=== PATIENT | female | born 1990 | race Two or more races ===

== ENCOUNTER 2017-01-09 10:03 | Emergency (ER) | payer BC, MEDICAID ==
[2017-01-09 10:07] VITALS: BP 116/65
--- NOTE | 2017-01-09 10:40 | ER Document Report ---
ED General - General Chief Complaint: Sore Throat Stated Complaint: THROAT PAIN, FEVER Mode of Arrival: Ambulatory Information source: Patient Notes: 26-year-old female who 25 weeks presents with complaints of a sore throat fever of 2 day duration. 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 Admits to nausea and vomiting. Denies any abdominal or vaginal complaints TRAVEL OUTSIDE OF THE [place] IN LAST 30 DAYS: No - HPI Onset: Other - 2 day duration Onset/Duration: Sudden Quality of pain: Achy Severity: Mild Pain Level: 1 Associated symptoms: Nausea, Vomiting, Sore throat Exacerbated by: Denies Relieved by: Denies Similar symptoms previously: No Recently seen / treated by doctor: No Notes: Exposed to strep - Related Data Allergies/Adverse Reactions: No Known Allergies Allergy (Verified 01/09/17 10:05) Past Medical History - Social History Smoking Status: Never Smoker Cigarette use (# per day): No Chew tobacco use (# tins/day): No Smoking Education Provided: No Family History: Reviewed & Not Pertinent Patient has suicidal ideation: No Patient has homicidal ideation: No Renal/ Medical History: Denies: Hx Peritoneal Dialysis Past Surgical History: Reports: Hx Section - Immunizations Hx Diphtheria, Pertussis, Tetanus Vaccination: Yes Review of Systems - Review of Systems Notes: REVIEW OF SYSTEMS: CONSTITUTIONAL : Admits fever EENT: Admits to sore throat CARDIOVASCULAR: Denies chest pain. Denies palpitations or racing or irregular heart beat. Denies ankle edema. RESPIRATORY: Denies cough, cold, or chest congestion. Denies shortness of breath, difficulty breathing, or wheezing. GASTROINTESTINAL: Admits nausea vomiting GENITOURINARY: Denies difficulty urinating, painful urination, burning, frequency, blood in urine, or discharge. FEMALE GENITOURINARY: Denies vaginal bleeding, heavy or abnormal periods, irregular periods. Denies vaginal discharge or odor. MUSCULOSKELETAL: Denies back or neck pain or stiffness. Denies joint pain or swelling. SKIN: Denies rash, lesions or sores. HEMATOLOGIC : Denies easy bruising or bleeding. LYMPHATIC: Denies swollen, enlarged glands. NEUROLOGICAL: Denies confusion or altered mental status. Denies passing out or loss of consciousness. Denies dizziness or lightheadedness. Denies headache. Denies weakness or paralysis or loss of use of either side. Denies problems with gait or speech. Denies sensory loss, numbness, or tingling. Denies seizures. PSYCHIATRIC: Denies anxiety or stress. Denies depression, suicidal ideation, or homicidal ideation. ALL OTHER SYSTEMS REVIEWED AND NEGATIVE. Dictation was performed using [employer] voice recognition software PHYSICAL EXAMINATION: GENERAL: Well-appearing, well-nourished and in no acute distress. HEAD: Atraumatic, normocephalic. EYES: Pupils equal round and reactive to light, extraocular movements intact, conjunctiva are normal. ENT: Nares patent, oropharynx clear without exudates. Moist mucous membranes. NECK: Normal range of motion, supple without lymphadenopathy LUNGS: Breath sounds clear to auscultation bilaterally and equal. No wheezes rales or rhonchi. HEART: Regular rate and rhythm without murmurs ABDOMEN: Gravid abdomen Female : deferred Musculoskeletal: Normal range of motion, no pitting or edema. No cyanosis. NEUROLOGICAL: Cranial nerves grossly intact. Normal speech, normal gait. Normal sensory, motor exams PSYCH: Normal mood, normal affect. SKIN: Warm, Dry, normal turgor, no rashes or lesions noted. Physical Exam - Vital signs Vitals: Temp Pulse Resp BP Pulse Ox 98.7 F 94 16 116/65 98 01/09/17 10:01/09/17 10:01/09/17 10:01/09/17 10:01/09/17 10:06 Course - Re-evaluation Re-evalutation: 01/09/17 10:40 Strep and influenza pending at this time patient looks well otherwise be given nausea control 01/09/17 11:46 Rapid strep and flu were negative After performing a Medical Screening Examination, I estimate there is LOW risk for ACUTE CORONARY SYNDROME, RESPIRATORY FAILURE, SEPSIS OR MENINGITIS, thus I consider the discharge disposition reasonable. The patient and I have discussed the diagnosis and risks, and we agree with discharging home with close follow- up. We also discussed returning to the Emergency Department immediately if new or worsening symptoms occur. We have discussed the symptoms which are most concerning (e.g., changing or worsening pain, trouble swallowing or breathing, neck stiffness, fever) that necessitate immediate return. - Vital Signs Vital signs: Temp Pulse Resp BP Pulse Ox 98.7 F 94 16 116/65 98 01/09/17 10:06 01/09/17 10:06 01/09/17 10:06 01/09/17 10:06 01/09/17 10:06 Discharge - Discharge Clinical Impression: Sore throat Nausea & vomiting Qualifiers: Vomiting type: unspecified Vomiting Intractability: non-intractable Qualified Code(s): R11.2 - Nausea with vomiting, unspecified Condition: Stable Disposition: HOME, SELF-CARE Instructions: Sore Throat ([facility]), Vomiting ([facility]) Prescriptions: Promethazine HCl [Phenergan 25 mg Tablet] 1 - 2 tab PO Q6H PRN #15 tablet PRN Reason: Forms: Return to Work Referrals: RONALD PAYNE MD [Primary Care Provider] - Follow up tomorrow
== END 2017-01-09 12:15 | disposition home or self-care (01) ==
LOC: ER 10:03
DX: J02.9 Acute pharyngitis, unspecified (principal); R11.2 Nausea with vomiting, unspecified; R07.0 Pain in throat; R50.9 Fever, unspecified
CPT/HCPCS: 87070; 87077; 87804; 87880; 99283

== ENCOUNTER 2017-01-22 00:17 | Emergency (ER) | payer BC, MEDICAID ==
[2017-01-22] MEDS ORDERED: AZITHROMYCIN 250 MG TABLET PO ONE (03:07)
[2017-01-22] MEDS ORDERED: CEFTRIAXONE INJ 250 MG VIAL IM ONE (03:07)
--- NOTE | 2017-01-22 03:12 | ER Document Report ---
ED GI/ - General Mode of Arrival: Ambulatory Information source: Patient TRAVEL OUTSIDE OF THE [place] IN LAST 30 DAYS: No - HPI Patient complains to provider of: Vaginal pain - with intercourse Associated symptoms: Other - See above - General Chief Complaint: Vaginal Pain Stated Complaint: painful intercourse Notes: Patient is a 26 year old female who presents to the emergency department complaining of painful intercourse onset 1 week ago and is afriad she may have an STD. Patient states that she is 28 weeks and with 1 miscarriage. Patient also complains of vaginal discharge with odor. Patient states that she has had chlamydia before in the beginning of this as well as BV 2 times. Patient states that her last intercourse was 5 days ago. ( [facility]) - Related Data Allergies/Adverse Reactions: No Known Allergies Allergy (Verified 01/09/17 10:05) Past Medical History - General Information source: Patient - Social History Smoking Status: Unknown if Ever Smoked Family History: Reviewed & Not Pertinent Past Surgical History: Reports: Hx Section - Immunizations Hx Diphtheria, Pertussis, Tetanus Vaccination: Yes Review of Systems - Review of Systems Constitutional: No symptoms reported EENT: No symptoms reported Cardiovascular: No symptoms reported Respiratory: No symptoms reported Gastrointestinal: No symptoms reported Genitourinary: No symptoms reported Female Genitourinary: See HPI, , Vaginal discharge, Vaginal odor, Painful intercourse Musculoskeletal: No symptoms reported Skin: No symptoms reported Hematologic/Lymphatic: No symptoms reported Neurological/Psychological: No symptoms reported -: Yes All other systems reviewed and negative Physical Exam - Vital signs Interpretation: Normal - General General appearance: Appears well, Alert - HEENT Head: Normocephalic, Atraumatic - Respiratory Respiratory status: No respiratory distress Chest status: Nontender Breath sounds: Normal Chest palpation: Normal - Cardiovascular Rhythm: Regular Heart sounds: Normal auscultation Murmur: No - Abdominal Inspection: Normal Distension: No distension Bowel sounds: Normal Tenderness: Nontender Organomegaly: No organomegaly - Genitourinary Speculum exam: Vaginal discharge - large amount of white discharge Vaginal bleeding: None Bimanuel exam: No: Cervical motion tender - Back Back: Normal, Nontender - Extremities General upper extremity: Normal inspection, Normal ROM, Normal strength General lower extremity: Normal inspection, Normal ROM, Normal strength, Normal weight bearing - Neurological Neuro grossly intact: Yes Cognition: Normal Orientation: AAOx4 Brian Coma Scale Eye Opening: Spontaneous Davison Coma Scale Verbal: Oriented Brian Coma Scale Motor: Obeys Commands Brian Coma Scale Total: 15 Speech: Normal Motor strength normal: LUE, RUE, LLE, RLE - Psychological Associated symptoms: Normal affect, Normal mood - Skin Skin Temperature: Warm Skin Moisture: Dry Skin Color: Normal Course - Re-evaluation Re-evalutation: 01/22/17 03:13 Patient presents emergency Department with a chief complaint of painful sex and vaginal discharge. She states she is 28 weeks think she has coronary again. Says she hasn't had sex in 5 days. Says it's painful denies any bleeding abdominal pain cramping nausea vomiting diarrhea or back pain. On examination well-appearing nontoxic abdomen is no acute guarding rebound rigidity cervical exam large amount of white vaginal discharge cervical os is closed no bleeding slight tenderness with Q-tip to the cervix no cervical motion tenderness or adnexal tenderness or fullness. When ahead and gave her Rocephin and Zithromax. Discussed with her importance of partner being treated if cultures come back positive she verbalizes an understanding of this no acute concerns with the in terms of cramping pain or bleeding. Follow-up with [facility] in one to 2 days and discussed reasons Fredia return sooner 01/22/17 03:25 (XAVI ZAMARRIPA) - Vital Signs Vital signs: Temp Pulse Resp BP Pulse Ox 98.4 F 66 18 114/66 100 01/22/17 04:08 01/22/17 04:08 01/22/17 04:08 01/22/17 04:08 01/22/17 04:08 - Laboratory Laboratory results interpreted by me: 01/22/17 03:05 Urine Protein 30 H Ur Leukocyte Esterase TRACE H Discharge - Discharge Clinical Impression: Vaginal discharge during Qualifiers: Trimester: second trimester Qualified Code(s): O26.892 - Other specified related conditions, second trimester Condition: Stable Disposition: HOME, SELF-CARE Additional Instructions: vaginal discharge in Your exam shows that you have vaginitis, a vaginal infection. The infection can be caused by a many different organisms, including trichomonas or Gardnerella. The usual symptoms are vaginal irritation and discharge. The treatment is usually antibiotics such as Flagyl. Laboratory tests can determine which germ is responsible. Use the medication as prescribed. Because this infection can be transmitted sexually, your sexual partner may need to be checked and treated also. If your physician has not discussed this with you, please check before resuming sexual relations. If a culture shows gonorrhea or chlamydia, the infection must be reported to the health department. Call the doctor if you develop pelvic pain, fever, or problems with urination, or if you don't improve as expected. Follow-up with your [facility] physician to 3 days return for increasing worsening or new symptoms. If you've cultures come back positive for gonorrhea or chlamydia he must have all sexual partners treated otherwise she will sure the disease back and forth. Return for increasing worsening or new symptoms Scribe Attestation: 01/23/17 21:25 i personally performed the services described in the documentation, reviewed the documentation recorded by the scribe in my presence and it accurately and completely records my words and actions. (AXVI ZAMARRIPA) Scribe Documentation - Scribe Written by Kylee:: kylee Guzmán, 01/22/17, 0313 acting as scribe for :: Toño
[2017-01-22 03:22] LABS: APPEARANCE,URINE CLOUDY; BILIRUBIN,URINE NEGATIVE (NEGATIVE); GLUCOSE, URINE NEGATIVE (NEGATIVE); KETONES,URINE NEGATIVE (NEGATIVE); LEUKOCYTE ESTERASE,URINE TRACE (NEGATIVE); NITRITE,URINE NEGATIVE (NEGATIVE); PROTEIN,URINE 30 mg/dL (NEGATIVE); URINE SPECIFIC GRAVITY 1.024; UROBILINOGEN,URINE NEGATIVE mg/dL (<2.0)
[2017-01-22] MEDS ORDERED: LIDOCAINE 1% INJ (10 MG/ML) 10 ML MDV INJ ONE (03:51)
[2017-01-22] MEDS ORDERED: LIDOCAINE 1% INJ-PF (10 MG/ML) 30 ML SDV ONE (03:57)
[2017-01-22 04:09] VITALS: BP 114/66
[2017-01-22 05:16] LABS: CHLAM PCR NOT DETECTED (NOT DETECT)
== END 2017-01-22 04:15 | disposition home or self-care (01) ==
LOC: ER 00:17
DX: O26.892 Other specified pregnancy related conditions, second trimester (principal); R10.2 Pelvic and perineal pain; Z3A.28 28 weeks gestation of pregnancy
CPT/HCPCS: 99283; 96372; 87210; 81001; 87491; 87591; J0696

== ENCOUNTER 2017-02-17 20:41 | Outpatient (CLI) | payer BC, MEDICAID ==
[2017-02-17 21:20] LABS: APPEARANCE,URINE SLIGHTLY-CLOUDY; BILIRUBIN,URINE NEGATIVE (NEGATIVE); GLUCOSE, URINE NEGATIVE (NEGATIVE); KETONES,URINE NEGATIVE (NEGATIVE); LEUKOCYTE ESTERASE,URINE NEGATIVE (NEGATIVE); NITRITE,URINE NEGATIVE (NEGATIVE); PROTEIN,URINE NEGATIVE (NEGATIVE); URINE SPECIFIC GRAVITY 1.015; UROBILINOGEN,URINE NEGATIVE mg/dL (<2.0)
[2017-02-17 21:33] LABS: URINE BARBITURATES SCREEN NEGATIVE; URINE METHADONE SCREEN NEGATIVE; URINE OPIATES LOW NEGATIVE; URINE PHENCYCLIDINE SCREEN NEGATIVE
== END 2017-02-17 22:48 | disposition home or self-care (01) ==
LOC: LC 20:41
PROVIDERS: ATTEND Student in an Organized Health Care Education/Training Program
PROC: 4A1HXCZ Monitoring of Products of Conception, Cardiac Rate, External Approach (ICD-10-PCS; principal; 2017-02-17)
DX: O47.03 False labor before 37 completed weeks of gestation, third trimester (principal); Z3A.30 30 weeks gestation of pregnancy
CPT/HCPCS: 76815; 80307; 81001

== ENCOUNTER 2017-03-09 12:55 | Outpatient (CLI) | payer BC, MEDICAID | END 2017-03-09 14:19 | disposition home or self-care (01) | LOC: LC 12:55 | PROVIDERS: ATTEND Obstetrics & Gynecology | PROC: 4A1HXCZ Monitoring of Products of Conception, Cardiac Rate, External Approach (ICD-10-PCS; principal; 2017-03-09) | DX: O36.8130 Decreased fetal movements, third trimester, not applicable or unspecified (principal); Z3A.35 35 weeks gestation of pregnancy | CPT/HCPCS: 59025 ==

== ENCOUNTER 2017-03-13 09:47 | Outpatient (CLI) | payer BC, MEDICAID ==
--- NOTE | 2017-03-13 09:49 | Non Stress Test Report ---
Non Stress Test Datetime Report Generated by CPN: 03/13/2017 09:49 DEMOGRAPHIC EGA NST: 33.5 INDICATION Indication for Study: Decreased Movement; Ordered by Provider MONITORING Monitor Explained: Monitor Explained; Test Explained; Patient Verbalized Understanding Time on Monitor: 03/09/2017 13:09 NST INTERVENTIONS NST Interventions: None Physician Notified NST: H Gordon CNM BABY A: [id number] BABY A Movement : Decreased Contraction Frequency : none FHR Baseline : 135 Accelerations : 15X15 Decelerations : None Variability : Moderate 6-25bpm NST Review: Meets Criteria for Reactive NST NST Review and Verified By : Lexis Zaidi RN NST Results: Reactive NST COMMENTS NST Comments: Audible movement heart, H Gordon CNM reviewed strip NST REPORT Report Trigger: Send Report
--- NOTE | 2017-03-13 10:24 | Non Stress Test Report ---
Non Stress Test Datetime Report Generated by CPN: 03/13/2017 10:24 DEMOGRAPHIC EGA NST: 34.2 INDICATION Indication for Study: Ordered by Provider Indication for Study (NST) Other: Repeat MONITORING Monitor Explained: Monitor Explained; Test Explained; Patient Verbalized Understanding Time on Monitor: 03/13/2017 09:50 Time off Monitor: 03/13/2017 10:22 NST Duration: 32 NST INTERVENTIONS NST Interventions: PO Hydration Physician Notified NST: A. Emmel CNM BABY A Movement : Present Contraction Frequency : none FHR Baseline : 130 Accelerations : 15X15 Decelerations : None Variability : Moderate 6-25bpm NST Review: Meets Criteria for Reactive NST NST Review and Verified By : Rosita Rodriguez RN NST Results: Reactive NST REPORT Report Trigger: Send Report
== END 2017-03-13 10:35 | disposition home or self-care (01) ==
LOC: LC 09:47
PROVIDERS: ATTEND Obstetrics & Gynecology
PROC: 4A1HXCZ Monitoring of Products of Conception, Cardiac Rate, External Approach (ICD-10-PCS; principal; 2017-03-13)
DX: O36.8130 Decreased fetal movements, third trimester, not applicable or unspecified (principal); Z3A.34 34 weeks gestation of pregnancy
CPT/HCPCS: 59025

== ENCOUNTER 2017-04-09 21:41 | Outpatient (CLI) | payer BC, MEDICAID ==
[2017-04-09 22:20] LABS: APPEARANCE,URINE SLIGHTLY-CLOUDY; BILIRUBIN,URINE NEGATIVE (NEGATIVE); GLUCOSE, URINE NEGATIVE (NEGATIVE); KETONES,URINE NEGATIVE (NEGATIVE); LEUKOCYTE ESTERASE,URINE TRACE (NEGATIVE); NITRITE,URINE NEGATIVE (NEGATIVE); PROTEIN,URINE NEGATIVE (NEGATIVE); URINE SPECIFIC GRAVITY 1.014; UROBILINOGEN,URINE NEGATIVE mg/dL (<2.0)
[2017-04-09 22:38] LABS: URINE BARBITURATES SCREEN NEGATIVE; URINE METHADONE SCREEN NEGATIVE; URINE OPIATES LOW NEGATIVE; URINE PHENCYCLIDINE SCREEN NEGATIVE
== END 2017-04-09 23:48 | disposition home or self-care (01) ==
LOC: LC 21:41
PROVIDERS: ATTEND Obstetrics & Gynecology
PROC: 4A1HXCZ Monitoring of Products of Conception, Cardiac Rate, External Approach (ICD-10-PCS; principal; 2017-04-09)
DX: O47.1 False labor at or after 37 completed weeks of gestation (principal); Z3A.38 38 weeks gestation of pregnancy
CPT/HCPCS: 59025; 80307; 81005

== ENCOUNTER 2017-04-17 07:09 | Inpatient (IN) | payer MEDICAID ==
[2017-04-17 07:41] LABS: ABSOLUTE LYMPHOCYTES (AUTO) 1.6 10^3/uL (0.5-4.7); ABSOLUTE MONOCYTES (AUTO) 0.7 10^3/uL (0.1-1.4); BASOPHILS % (AUTO) 0.3 % (0-2); EOSINOPHILS % (AUTO) 0.6 % (0-6); HEMATOCRIT 33.4 % (36.0-47.0); HEMOGLOBIN 10.7 g/dL (12.0-15.5); HGB HCT DIFFERENCE -1.3; LYMPHOCYTES % (AUTO) 21.8 % (13-45); MEAN CORPUSCULAR HEMOGLOBIN 25.4 pg (27.0-33.4); MEAN CORPUSCULAR HGB CONC 32.1 g/dL (32.0-36.0); MEAN CORPUSCULAR VOLUME 79 fl (80-97); MONOCYTES % (AUTO) 9.9 % (3-13); RED BLOOD COUNT 4.22 10^6/uL (3.72-5.28); RED CELL DISTRIBUTION WIDTH 15.1 % (11.5-14.0); SEGMENTED NEUTROPHILS % (AUTO) 67.4 % (42-78); WHITE BLOOD COUNT 7.4 10^3/uL (4.0-10.5)
[2017-04-17] MEDS ORDERED: RINGERS SOLUTION,LACTATED 2,000 ML IV PRN (07:42)
[2017-04-17 08:05] LABS: APPEARANCE,URINE TURBID; BILIRUBIN,URINE NEGATIVE (NEGATIVE); GLUCOSE, URINE NEGATIVE (NEGATIVE); KETONES,URINE NEGATIVE (NEGATIVE); LEUKOCYTE ESTERASE,URINE TRACE (NEGATIVE); NITRITE,URINE NEGATIVE (NEGATIVE); PROTEIN,URINE 30 mg/dL (NEGATIVE); URINE SPECIFIC GRAVITY 1.024; UROBILINOGEN,URINE NEGATIVE mg/dL (<2.0)
[2017-04-17 08:24] LABS: URINE BARBITURATES SCREEN NEGATIVE; URINE METHADONE SCREEN NEGATIVE; URINE OPIATES LOW NEGATIVE; URINE PHENCYCLIDINE SCREEN NEGATIVE
[2017-04-17] MEDS ORDERED: FENTANYL CITRATE INJ/PF 100 MCG/2 ML AMPUL ONE ×3 (08:35→11:09)
[2017-04-17] MEDS ORDERED: OXYTOCIN 10 UNIT/ML VIAL ONE (08:35)
[2017-04-17] MEDS ORDERED: OXYTOCIN/NORMAL SALINE 20 UNIT/1,000 ML RTUINJ ONE (08:36)
[2017-04-17] MEDS ORDERED: ACETAMINOPHEN 100 ML IV ONE (08:36)
[2017-04-17] MEDS ORDERED: PHENYLEPHRINE HCL INJ/PF 10 MG/1 ML SDV ONE (08:36)
[2017-04-17] MEDS ORDERED: EPHEDRINE SULFATE INJ 50 MG/1 ML AMPULE ONE (08:36)
[2017-04-17] MEDS ORDERED: MIDAZOLAM 2 MG/2 ML INJ ONE (08:36)
[2017-04-17] MEDS ORDERED: ONDANSETRON HCL INJ/PF 4 MG/2 ML SDV ONE (08:36)
[2017-04-17] MEDS: CEFAZOLIN 2 GM/D5W RTU 2 GM/50 ML RTUPB IV PRN ×2 (08:49→09:10)
[2017-04-17] MEDS ORDERED: MORPHINE SULFATE 10 MG/ML INJ ONE (09:06)
[2017-04-17] MEDS ORDERED: PROPOFOL INJ 200 MG/20 ML VIAL IV ONE (09:06)
[2017-04-17] MEDS ORDERED: CITRIC ACID/SODIUM CITRATE ORAL SOLN 15 ML UDCUP ONE (09:17)
[2017-04-17] MEDS ORDERED: MORPHINE SULFATE 10 MG/ML INJ IV PRN (09:32)
[2017-04-17] MEDS ORDERED: FENTANYL CITRATE INJ/PF 100 MCG/2 ML AMPUL IV PRN ×3 (09:32)
[2017-04-17] MEDS ORDERED: DIPHENHYDRAMINE HCL 50 MG/ML VIAL IV PRN (09:32)
[2017-04-17] MEDS ORDERED: PROMETHAZINE HCL INJ 25 MG/1 ML VIAL IV PRN ×2 (09:32→14:44)
--- NOTE | 2017-04-17 10:05 | Non Stress Test Report ---
Non Stress Test Datetime Report Generated by CPN: 04/17/2017 10:04 DEMOGRAPHIC Test Number: 3 EGA NST: 38.1 INDICATION Indication for Study: Ordered by Provider MONITORING Monitor Explained: Monitor Explained; Test Explained; Patient Verbalized Understanding Time on Monitor: 04/09/2017 22:09 Time off Monitor: 04/09/2017 23:39 NST Duration: 90 NST INTERVENTIONS NST Interventions: PO Hydration; Reposition Patient BABY A: [id number] BABY A Movement : Present Contraction Frequency : irregular FHR Baseline : 140 Accelerations : 15X15 Variability : Moderate 6-25bpm NST Review: Meets Criteria for Reactive NST NST Review and Verified By : MICHAEL Leon NST Results: Reactive NST REPORT Report Trigger: Send Report
[2017-04-17] MEDS ORDERED: MISOPROSTOL 0.2 MG TABLET ONE (10:11)
--- NOTE | 2017-04-17 11:48 | OPERATIVE REPORT E ---
Operative Report NAME: JP SCHULTZ : 1990 AGE: 27Y DATE OF SURGERY: ROOM: 228 PREOPERATIVE DIAGNOSES: Intrauterine at 39+ weeks with history of section, desire for repeat, and morbid obesity. POSTOPERATIVE DIAGNOSIS: Intrauterine at 39+ weeks with history of section, desire for repeat, and morbid obesity. OPERATION: Repeat low transverse cervical section. SURGEON: SHIRA SALGADO M.D. ANESTHESIA: General endotracheal - patient refused spinal. ESTIMATED BLOOD LOSS: 600 mL. FINDINGS: Bowers female infant vertex presentation, clear amniotic fluid, Apgars were 8 and 9, weight was 3190 gm or 7 pounds 10 ounces, normal uterus, tubes, and ovaries. Also of significance, the patient had a very redundant panus with peau d'orange skin changes and 3 areas of what appeared to be an early folliculitis. PROCEDURE: After discussing risks, benefits, and alternatives of the procedure and obtaining informed consent, the patient was taken to the operating room. A Livingston catheter was placed. Abdominal wall retractor was placed, and the abdomen was prepped and draped in the usual standard fashion. General anesthesia was obtained. Pfannenstiel skin incision was made, and the abdomen entered in layers in the standard fashion. A low transverse cervical incision was made with the C-Safe knife. The surgeon's hand was entered into the hysterotomy incision, and the vertex elevated and delivered. Shoulders and body delivered easily thereafter. Nasopharynx and oropharynx were bulb suctioned. Cord was clamped and cut. was handed to pediatrics who were present. The placenta was manually extracted. The uterus was exteriorized and cleared of all clots and debris. The hysterotomy incision was closed in a double-layer fashion with #0 Monocryl. An area of oozing on the left aspect of the incision was noted, and this was oversewn with a [id number] of #0 Monocryl. Excellent hemostasis was then observed. The uterus, tubes, and ovaries were returned to the peritoneal cavity. The cavity was irrigated, and hemostasis again assured. The peritoneum was closed with 2-0 Vicryl in a pursestring fashion. The subfascial spaces were inspected and noted to be hemostatic. The fascia was closed with #1 Vicryl. The subcutaneous spaces were irrigated, and hemostasis achieved. The subcutaneous tissues were reapproximated with 3-0 plain gut. The skin was closed in a subcuticular fashion. A RACHAEL dressing was applied for negative pressure given the patient's peau d'orange lymphedematous changes in the pannus. Cytotec 1000 mcg was placed per rectum for prevention of uterine atony. The patient was awakened from anesthesia and taken to recovery in stable condition. All sponge, needle, lap, and instrument counts were correct x2. DICTATING PHYSICIAN: SHIRA SALGADO M.D. [id number] PHY#: [id number] ID: [id number] JOB#: [id number] ACCT: [id number] cc:SHIRA SALGADO M.D. > MTDD
[2017-04-17] MEDS ORDERED: KETOROLAC TROMETHAMINE INJ/PF 30 MG/1 ML SDV IV ONE (11:57)
[2017-04-17] MEDS ORDERED: KETOROLAC TROMETHAMINE INJ/PF 30 MG/1 ML SDV ONE (12:25)
[2017-04-17] MEDS: HYDROMORPHONE HCL INJ/PF 2 MG/ML AMPULE IV PRN ×2 (13:00→18:24)
[2017-04-17] MEDS ORDERED: MEASLES,MUMPS&RUBELLA VACC/PF 0.5 ML VIAL SUBCUT PRN (13:17)
[2017-04-17] MEDS ORDERED: ACETAMINOPHEN 325 MG TABLET PO PRN (13:17)
[2017-04-17] MEDS ORDERED: SIMETHICONE 80 MG TAB.CHEW PO PRN (13:17)
[2017-04-17] MEDS ORDERED: DIPH/PERTUSS(ACELL)/TETANUS VAC/PF 0.5 ML SYR (>=10YO) IM PRN (13:17)
[2017-04-17] MEDS ORDERED: OXYTOCIN/NORMAL SALINE 20 UNIT/1,000 ML RTUINJ INJ PRN (13:17)
[2017-04-17] MEDS ORDERED: PROMETHAZINE HCL INJ 25 MG/1 ML VIAL IM PRN (13:17)
[2017-04-17] MEDS ORDERED: PROMETHAZINE HCL INJ 25 MG/1 ML VIAL ONE (13:58)
[2017-04-17] MEDS ORDERED: KETOROLAC TROMETHAMINE INJ/PF 30 MG/1 ML SDV IV SCH (14:00)
[2017-04-17] MEDS ORDERED: ONDANSETRON HCL INJ/PF 4 MG/2 ML SDV IV PRN (14:45)
[2017-04-17] MEDS ORDERED: ONDANSETRON 4 MG TAB.RAPDIS PO PRN (14:46)
[2017-04-17] MEDS: CEFAZOLIN 2 GM/D5W RTU 2 GM/50 ML RTUPB IV SCH (17:12)
[2017-04-17] MEDS: IBUPROFEN 800 MG TABLET PO SCH ×2 (17:13→23:02)
[2017-04-17] MEDS: DOCUSATE SODIUM 100 MG CAPSULE PO SCH (17:14)
[2017-04-17] MEDS ORDERED: RINGERS SOLUTION,LACTATED 1,000 ML IV PRN (22:00)
[2017-04-18] MEDS: CEFAZOLIN 2 GM/D5W RTU 2 GM/50 ML RTUPB IV SCH ×2 (01:20→07:49)
[2017-04-18] MEDS: OXYCODONE-ACETAMINOPHEN 5-325 MG TABLET PO PRN ×6 (01:20→22:41)
[2017-04-18] MEDS: IBUPROFEN 800 MG TABLET PO SCH ×4 (05:52→23:35)
[2017-04-18 06:36] LABS: HEMATOCRIT 26.6 % (36.0-47.0); HEMOGLOBIN 8.7 g/dL (12.0-15.5); HGB HCT DIFFERENCE -0.5; MEAN CORPUSCULAR HGB CONC 32.7 g/dL (32.0-36.0); MEAN CORPUSCULAR VOLUME 80 fl (80-97); RED BLOOD COUNT 3.35 10^6/uL (3.72-5.28); RED CELL DISTRIBUTION WIDTH 15.3 % (11.5-14.0); WHITE BLOOD COUNT 7.4 10^3/uL (4.0-10.5)
[2017-04-18] MEDS: PRENATAL VITAMIN W-O CA NO5/FE FUMARATE/FA CAPSULE PO SCH (09:46)
[2017-04-18] MEDS: DOCUSATE SODIUM 100 MG CAPSULE PO SCH ×2 (09:47→17:49)
--- NOTE | 2017-04-18 11:19 | PDOC PROGRESS REPORT ---
Subjective-OB Subjective: Post Delivery Day: 1 27 year old. Denies any needs at this time, states lochia is stable, pain well controlled, pain moderately well controlled, passing gas. Physical Exam (OB) Vital Signs: Temp Pulse Resp BP Pulse Ox 98.1 F 80 18 110/61 95 04/18/17 08:23 04/18/17 08:23 04/18/17 08:23 04/18/17 08:23 04/18/17 08:23 Intake & Output 04/17/17 04/18/17 04/19/17 06:59 06:59 06:59 Intake Total 2700 Output Total 4275 Balance -1575 Weight 112.49 kg - PIH/Pre-Eclampsia Clonus: Negative Headache: Absent Epigastric Pain: No Visual Changes: No - Dressing Removed: No - Lochia Lochia Amount: Small 10-25 ml Lochia Color: Rubra/Red - Abdomen Description: Soft, Round Hernia Present: No Fundal Description: Firm, Midline Describe if Not Midline: unable to assess due to dressing Fundal Height: u/u - u/2 Objective-Diagnostic Laboratory: 04/18/17 06:15 04/18/17 04/18/17 06:15 06:15 WBC 7.4 RBC 3.35 L Hgb 8.7 L Hct 26.6 L MCV 80 MCH 26.0 L MCHC 32.7 RDW 15.3 H Plt Count 102 L Blood Type A NEGATIVE Assessment and Plan(PN) - Assessment and Plan (1) Acute blood loss anemia Is this a current diagnosis for this admission?: YesPlan: ferrous sulfate increase dietary iron (2) Delivery by elective caesarean section Is this a current diagnosis for this admission?: YesPlan: routine pp care - Time Spent with Patient Time with patient: Less than 15 minutes Critical Time spent with patient: Less than 15 minutes Medications reviewed and adjusted accordingly: Yes - Disposition Anticipated Discharge: Home Within: within 24 hours
[2017-04-18] MEDS: CARBAMIDE PEROXIDE 6.5% OTIC SOLN 15 ML AU SCH (14:00)
[2017-04-19] MEDS: OXYCODONE-ACETAMINOPHEN 5-325 MG TABLET PO PRN ×3 (02:48→15:14)
[2017-04-19] MEDS: IBUPROFEN 800 MG TABLET PO SCH ×3 (05:37→17:11)
[2017-04-19] MEDS: DOCUSATE SODIUM 100 MG CAPSULE PO SCH ×2 (09:24→17:11)
[2017-04-19] MEDS: PRENATAL VITAMIN W-O CA NO5/FE FUMARATE/FA CAPSULE PO SCH (09:24)
[2017-04-19] MEDS: CARBAMIDE PEROXIDE 6.5% OTIC SOLN 15 ML AU SCH (09:26)
--- NOTE | 2017-04-19 10:28 | PDOC DISCHARGE SUMMARY ---
Final Diagnosis Discharge Date: 04/19/17 - Final Diagnosis (1) Acute blood loss anemia Is this a current diagnosis for this admission?: Yes (2) Delivery by elective caesarean section Is this a current diagnosis for this admission?: Yes Discharge Data - Discharge Medication Home Medications: Sertraline HCl [Zoloft] 50 mg PO DAILY 04/17/17 Intrapartum Procedure(s): : Low Cervical, Transverse - Diagnosis Test Laboratory: Temp Pulse Resp BP Pulse Ox 98.0 F 91 18 123/69 99 04/19/17 07:55 04/19/17 07:55 04/19/17 07:55 04/19/17 07:55 04/19/17 07:55 04/17/17 04/17/17 04/18/17 07:20 07:32 06:15 RBC 4.22 3.35 L Hgb 10.7 L 8.7 L Hct 33.4 L 26.6 L Urine Opiates Screen NEGATIVE - Discharge information/Instructions Discharge Activity: Balance Activity w/Rest Discharge Diet: Regular Disposition: HOME, SELF-CARE Follow up with: [facility] in: 1 - s/p repeat c/s
--- NOTE | 2017-04-19 10:37 | PDOC PROGRESS REPORT ---
Subjective-OB Subjective: Post Delivery Day: 27 year old. Denies any needs at this time pt bottlefeeding doing well pain well managed abdomen nontender FF@u-1 no additional drainage on incision Rh negative rhogam candidate given per RN ANemia- continue iron bid as home med precautions reviewed d/c home rtc 1 week for follow up pt verbalizes understanding Physical Exam (OB) Vital Signs: Temp Pulse Resp BP Pulse Ox 98.0 F 91 18 123/69 99 04/19/17 07:55 04/19/17 07:55 04/19/17 07:55 04/19/17 07:55 04/19/17 07:55 Intake & Output 04/18/17 04/19/17 04/20/17 06:59 06:59 06:59 Intake Total 2700 650 Output Total 4275 Balance -1575 650 Weight 112.49 kg - PIH/Pre-Eclampsia Clonus: Negative Headache: Absent Epigastric Pain: No Visual Changes: No - Dressing Removed: No Incision: Dressing - Lochia Lochia Amount: Scant < 10 ml Lochia Color: Rubra/Red - Abdomen Description: Tender, Soft, Round Hernia Present: No Fundal Description: Firm, Midline Describe if Not Midline: unable to assess due to dressing Fundal Height: u/u - u/2 Objective-Diagnostic Laboratory: 04/18/17 06:15 04/18/17 06:15 Blood Type A NEGATIVE Assessment and Plan(PN) - Assessment and Plan (1) Acute blood loss anemia Is this a current diagnosis for this admission?: Yes (2) Delivery by elective caesarean section Is this a current diagnosis for this admission?: Yes - Time Spent with Patient Medications reviewed and adjusted accordingly: Yes - Disposition Anticipated Discharge: Home
[2017-04-19 15:42] VITALS: BP 106/68
== END 2017-04-19 17:30 | disposition home or self-care (01) | DRG 765 ==
LOC: 2S 07:09
PROVIDERS: ADMIT Specialist; ATTEND Specialist
PROC: 10D00Z1 Extraction of Products of Conception, Low, Open Approach (ICD-10-PCS; principal; 2017-04-17 09:15)
PROC: 3E0234Z Introduction of Serum, Toxoid and Vaccine into Muscle, Percutaneous Approach (ICD-10-PCS; 2017-04-18)
DX: O34.211 Maternal care for low transverse scar from previous cesarean delivery (principal); Z68.41 Body mass index [BMI] 40.0-44.9, adult; O36.0930 Maternal care for other rhesus isoimmunization, third trimester, not applicable or unspecified; D62 Acute posthemorrhagic anemia; O99.824 Streptococcus B carrier state complicating childbirth; O99.214 Obesity complicating childbirth; E66.01 Morbid (severe) obesity due to excess calories; O90.81 Anemia of the puerperium; Z37.0 Single live birth; Z3A.39 39 weeks gestation of pregnancy
CPT/HCPCS: 1961; 36415; 59025; 80307; 81001; 85025; 85027; 85461; 86850; 86900; 86901; 88307; 94799; J0131; J0690; J1170; J1885; J2250; J2270; J2370; J2405; J2550; J2590; J2704; J2790; J3010; J3490; J7120

== ENCOUNTER 2017-08-03 21:37 | Emergency (ER) | payer MEDICAID ==
[2017-08-03 23:17] LABS: ABSOLUTE EOSINOPHILS # (AUTO) 0.1 10^3/uL (0.0-0.6); ABSOLUTE NEUT (AUTO) 11.8 10^3/uL (1.7-8.2); BASOPHILS % (AUTO) 0.2 % (0-2); EOSINOPHILS % (AUTO) 0.7 % (0-6); HEMATOCRIT 34.4 % (36.0-47.0); HEMOGLOBIN 11.5 g/dL (12.0-15.5); HGB HCT DIFFERENCE 0.1; MEAN CORPUSCULAR HEMOGLOBIN 25.8 pg (27.0-33.4); MEAN CORPUSCULAR HGB CONC 33.4 g/dL (32.0-36.0); MEAN CORPUSCULAR VOLUME 77 fl (80-97); MONOCYTES % (AUTO) 7.2 % (3-13); RED BLOOD COUNT 4.45 10^6/uL (3.72-5.28); RED CELL DISTRIBUTION WIDTH 16.4 % (11.5-14.0); SEGMENTED NEUTROPHILS % (AUTO) 84.9 % (42-78)
[2017-08-03 23:46] LABS: APPEARANCE,URINE SLIGHTLY-CLOUDY; BILIRUBIN,URINE NEGATIVE (NEGATIVE); GLUCOSE, URINE NEGATIVE (NEGATIVE); KETONES,URINE NEGATIVE (NEGATIVE); LEUKOCYTE ESTERASE,URINE SMALL (NEGATIVE); NITRITE,URINE NEGATIVE (NEGATIVE); PROTEIN,URINE NEGATIVE (NEGATIVE); URINE SPECIFIC GRAVITY 1.027; UROBILINOGEN,URINE NEGATIVE mg/dL (<2.0)
[2017-08-03 23:53] LABS: ALANINE AMINOTRANSFERASE 25 U/L (9-52); ALBUMIN 4.5 g/dL (3.5-5.0); ALKALINE PHOSPHATASE 82 U/L (38-126); ANION GAP 15 (5-19); ASPARTATE AMINO TRANSFERASE 15 U/L (14-36); BILIRUBIN,DIRECT 0.4 mg/dL (0.0-0.4); BILIRUBIN,TOTAL 0.6 mg/dL (0.2-1.3); BLOOD UREA NITROGEN 10 mg/dL (7-20); CALCIUM 10.1 mg/dL (8.4-10.2); CARBON DIOXIDE 25 mmol/L (22-30); CHLORIDE 104 mmol/L (98-107); CREATININE RESULT 0.74 mg/dL (0.52-1.25); GLUCOSE 108 mg/dL (75-110); POTASSIUM 3.5 mmol/L (3.6-5.0); SODIUM 144.4 mmol/L (137-145); TOTAL PROTEIN 7.8 g/dL (6.3-8.2)
[2017-08-04] MEDS ORDERED: IBUPROFEN 600 MG TABLET PO ONE (00:07)
[2017-08-04] MEDS ORDERED: NORMAL SALINE 1000 ML 1,000 ML IV ONE (00:25)
--- NOTE | 2017-08-04 00:29 | ER Document Report ---
ED General - General Chief Complaint: Fever Stated Complaint: FEVER, SORE THROAT Time Seen by Provider: 08/04/17 00:04 Notes: Patient is a 27-year-old female presents with complaint of sore throat and fever. She states fever started tonight. When she arrived her temp was 1 of 2.1. She said at home was 104.9. She took Tylenol at 9:00. No vomiting. No diarrhea. She says that she had a sudden onset of sharp pain in the left lower quadrant followed by for some vaginal bleeding. No abnormal vaginal discharge. No dysuria. No other complaints at this time. She initially put that she could not be on her triage note. Patient says now that there is a possibility she could be . She has not checked a test. No difficulty breathing or swallowing. TRAVEL OUTSIDE OF THE [place] IN LAST 30 DAYS: No - Related Data Allergies/Adverse Reactions: No Known Allergies Allergy (Verified 08/03/17 22:05) Past Medical History - Social History Smoking Status: Unknown if Ever Smoked Frequency of alcohol use: None Drug Abuse: None Family History: Reviewed & Not Pertinent Patient has suicidal ideation: No Patient has homicidal ideation: No Pulmonary Medical History: Reports: Hx Asthma Renal/ Medical History: Reports: Hx Pelvic Inflammatory Disease. Denies: Hx Peritoneal Dialysis Psychiatric Medical History: Reports: Hx Depression Past Surgical History: Reports: Hx Section - Immunizations Hx Diphtheria, Pertussis, Tetanus Vaccination: Yes Review of Systems - Review of Systems Notes: My Normal Review Basic REVIEW OF SYSTEMS: CONSTITUTIONAL : Fever. EENT: Sore throat. CARDIOVASCULAR: Denies chest pain. RESPIRATORY: Denies cough, cold, or chest congestion. Denies shortness of breath, difficulty breathing, or wheezing. GASTROINTESTINAL: Left lower quadrant abdominal pain. Denies nausea, vomiting, or diarrhea. GENITOURINARY: Denies difficulty urinating, painful urination, burning, frequency, or blood in urine. FEMALE GENITOURINARY: Abnormal vaginal bleeding outside her regular menstrual period. MUSCULOSKELETAL: Denies neck or back pain or joint pain or swelling. SKIN: Denies rash or skin lesions. NEUROLOGICAL: Denies altered mental status or loss of consciousness. Denies headache. Denies weakness or paralysis or loss of use of either side. Denies problems with gait or speech. Denies sensory or motor loss. ALL OTHER SYSTEMS REVIEWED AND NEGATIVE. Physical Exam - Vital signs Vitals: Temp Pulse Resp BP Pulse Ox 102.1 F H 112 H 20 120/75 100 08/03/17 22:05 08/03/17 22:05 08/03/17 22:05 08/03/17 22:05 08/03/17 22:05 - Notes Notes: General Appearance: Well nourished, alert, cooperative, no acute distress, no obvious discomfort. Vitals: reviewed, See vital signs table. Head: no swelling or tenderness to the head Eyes: PERRL, EOMI, Conjuctiva clear Mouth: No decreasd moisture Throat: Mild tonsillar erythema. No peritonsillar inflammation or swelling. No exudates. Neck: Supple, no neck tenderness, range of motion without pain. Lungs: No wheezing, No rales, No rhonci, No accessory muscle use, good air exchange bilaterally. Heart: Tachycardic rate, Regular rythm, No murmur, no rub Abdomen: Normal BS, soft, No rigidity, mild left lower quadrant abdominal tenderness palpation., No guarding, no rebound, Exam: Normal external genitalia. Very small amount of blood in vaginal vault. No abnormal discharge. No pain during exam. Extremities: strength 5/5 in all extremities, good pulses in all extremities, no swelling or tenderness in the extremities, no edema. Skin: warm, dry, appropriate color, no rash Neuro: speech clear, oriented x 3, normal affect, responds appropriately to questions. Course - Re-evaluation Re-evalutation: 08/04/17 02:33 Clinically patient is looking feeling improved. She still has some left lower quadrant abdominal pain. Still not sure exactly why she had sudden onset vaginal bleeding with left lower quadrant pain which had a fever. Will obtain ultrasound. I will give her a shot of penicillin for strep throat. Will perform a pelvic exam. 08/04/17 02:49 Patient initially says she wanted the penicillin shot but now says she does not want the shot. She prefers to do oral medication. I will give a dose of amoxicillin here. Pelvic exam is been performed. We are pending ultrasound. 08/04/17 06:15 Patient does have strep throat which most likely is causing her fever. On exam she has no evidence of peritonsillar abscess. Her voice is normal. She has no trismus. She has no difficulty breathing. She has no inflammation or swelling in the peritonsillar space. Uvula is midline. I do not know why the patient has left-sided pelvic pain with vaginal bleeding 2 weeks from her previous menstrual period. I did perform a pelvic exam as well as a ultrasound which did not show any concerning findings. At this time we feel patient safe to be discharged home. I strongly encouraged her return to ER immediately if she has recurrent high fevers not responding to Tylenol, worsening pain, any difficulty breathing, any difficulty swallowing, or worsening vaginal bleeding. Patient agrees with plan and will be discharged home. Dictation of this chart was performed using voice recognition software; therefore, there may be some unintended grammatical errors. - Vital Signs Vital signs: Temp Pulse Resp BP Pulse Ox 99.0 F 78 20 130/77 H 96 08/04/17 05:08 08/04/17 05:08 08/03/17 22:05 08/04/17 05:08 08/04/17 05:08 - Laboratory Result Diagrams: 08/03/17 22:45 08/03/17 22:45 Laboratory results interpreted by me: 08/03/17 08/03/17 08/03/17 22:45 22:45 23:25 WBC 14.0 H Hgb 11.5 L Hct 34.4 L MCV 77 L MCH 25.8 L RDW 16.4 H Seg Neutrophils % 84.9 H Lymphocytes % 7.0 L Absolute Neutrophils 11.8 H Potassium 3.5 L Urine Blood LARGE H Ur Leukocyte Esterase SMALL H Discharge - Discharge Clinical Impression: Strep throat, Abnormal vaginal bleeding, Pelvic pain Fever Qualifiers: Fever type: unspecified Qualified Code(s): R50.9 - Fever, unspecified Condition: Good Disposition: HOME, SELF-CARE Additional Instructions: Please take Tylenol every 4 hours to treat fever. Please take the antibiotic as prescribed. Please return to the ER immediately if you develop worsening fevers , vomiting, worsening bleeding, worsening pain, or feel that you are worsening. Prescriptions: Amoxicillin Trihydrate [Amoxil 500 mg Capsule] 500 mg PO BID #20 capsule Forms: Return to Work Referrals: RONALD PAYNE MD [Primary Care Provider] - 08/06/17
[2017-08-04] MEDS ORDERED: PENICILLIN G BENZATHINE 1.2 MILLION UNIT/2 ML DISP.SYRIN IM ONE (02:32)
[2017-08-04] MEDS ORDERED: AMOXICILLIN TRIHYDRATE 500 MG CAPSULE PO ONE (02:49)
--- NOTE | 2017-08-04 04:20 | RADIOLOGY REPORT (SQ) ---
EXAM DESCRIPTION: U/S NON OB PEL TV W/DOPPLER COMPLETED DATE/TIME: 08/04/2017 3:22 am REASON FOR STUDY: Left sided pelvic pain, vaginal bleeding, fever COMPARISON: None. TECHNIQUE: Dynamic and static grayscale images acquired of the pelvis via transvaginal approach and recorded on PACS. Additional selected color Doppler and spectral images recorded. LIMITATIONS: None. FINDINGS: UTERUS: Contour normal. No mass. ENDOMETRIAL STRIPE: No focal or generalized thickening. No masses. CERVIX: No nabothian cysts. RIGHT OVARY: No abnormal masses. RIGHT OVARY DOPPLER: Normal arterial vascular flow without evidence for torsion. LEFT OVARY: No abnormal masses. LEFT OVARY DOPPLER: Normal arterial vascular flow without evidence for torsion. FREE FLUID: None noted. OTHER: No other significant finding. MEASUREMENTS: UTERUS: 11.9 cm. ENDOMETRIAL STRIPE: 0.8 cm thickness. RIGHT OVARY: 3.2 cm. LEFT OVARY: 3.7 cm. IMPRESSION: NORMAL TRANSVAGINAL PELVIC ULTRASOUND. TECHNICAL DOCUMENTATION: JOB ID: [id number] [employer]- All Rights Reserved
[2017-08-04] MEDS ORDERED: ACETAMINOPHEN 325 MG TABLET PO ONE (04:35)
[2017-08-04 04:42] LABS: CHLAM PCR NOT DETECTED (NOT DETECT)
[2017-08-04 05:09] VITALS: BP 130/77
== END 2017-08-04 05:08 | disposition home or self-care (01) ==
LOC: ER 21:37
DX: J02.0 Streptococcal pharyngitis (principal); N93.9 Abnormal uterine and vaginal bleeding, unspecified; R50.9 Fever, unspecified; R10.32 Left lower quadrant pain; R10.2 Pelvic and perineal pain; J45.909 Unspecified asthma, uncomplicated; Z87.42 Personal history of other diseases of the female genital tract
CPT/HCPCS: 99284; 96360; 36415; 87210; 87880; 84703; 85025; 80053; 81001; 87491; 87591; 76830; 93976; J3490 ×2; J7030

== ENCOUNTER 2018-01-12 19:45 | Emergency (ER) | payer MEDICAID ==
[2018-01-12 21:33] LABS: ABSOLUTE EOSINOPHILS # (AUTO) 0.1 10^3/uL (0.0-0.6); ABSOLUTE MONOCYTES (AUTO) 0.7 10^3/uL (0.1-1.4); ABSOLUTE NEUT (AUTO) 8.3 10^3/uL (1.7-8.2); BASOPHILS % (AUTO) 0.4 % (0-2); EOSINOPHILS % (AUTO) 0.5 % (0-6); HEMATOCRIT 36.8 % (36.0-47.0); HEMOGLOBIN 12.1 g/dL (12.0-15.5); LYMPHOCYTES % (AUTO) 18.1 % (13-45); MEAN CORPUSCULAR HEMOGLOBIN 25.8 pg (27.0-33.4); MEAN CORPUSCULAR HGB CONC 32.9 g/dL (32.0-36.0); MEAN CORPUSCULAR VOLUME 78 fl (80-97); MONOCYTES % (AUTO) 6.3 % (3-13); PLATELET COUNT 313 10^3/uL (150-450); RED BLOOD COUNT 4.69 10^6/uL (3.72-5.28); RED CELL DISTRIBUTION WIDTH 16.2 % (11.5-14.0); SEGMENTED NEUTROPHILS % (AUTO) 74.7 % (42-78); TOTAL CELLS COUNTED % (AUTO) 100 %; WHITE BLOOD COUNT 11.1 10^3/uL (4.0-10.5)
[2018-01-12 21:39] LABS: BILIRUBIN,URINE NEGATIVE (NEGATIVE); COLOR,URINE YELLOW; GLUCOSE, URINE NEGATIVE (NEGATIVE); KETONES,URINE NEGATIVE (NEGATIVE); LEUKOCYTE ESTERASE,URINE SMALL (NEGATIVE); NITRITE,URINE NEGATIVE (NEGATIVE); PROTEIN,URINE NEGATIVE (NEGATIVE); URINE SPECIFIC GRAVITY 1.023; UROBILINOGEN,URINE NEGATIVE mg/dL (<2.0)
[2018-01-12 21:40] LABS: APPEARANCE,URINE SLIGHTLY HAZY
[2018-01-12 21:45] LABS: ALANINE AMINOTRANSFERASE 27 U/L (9-52); ALBUMIN 4.7 g/dL (3.5-5.0); ALKALINE PHOSPHATASE 81 U/L (38-126); ANION GAP 10 (5-19); ASPARTATE AMINO TRANSFERASE 18 U/L (14-36); BILIRUBIN,DIRECT 0.1 mg/dL (0.0-0.4); BILIRUBIN,TOTAL 0.5 mg/dL (0.2-1.3); BLOOD UREA NITROGEN 11 mg/dL (7-20); CARBON DIOXIDE 28 mmol/L (22-30); CHLORIDE 102 mmol/L (98-107); GLUCOSE 90 mg/dL (75-110); LIPASE 65.7 U/L (23-300); POTASSIUM 3.7 mmol/L (3.6-5.0); SODIUM 140.4 mmol/L (137-145); TOTAL PROTEIN 8.2 g/dL (6.3-8.2)
--- NOTE | 2018-01-12 22:11 | ER Document Report ---
ED General - General Chief Complaint: Nausea/Vomiting Stated Complaint: NAUSEA/VOMITING Time Seen by Provider: 01/12/18 20:39 Notes: 27-year-old female patient states that she has had weight gain, not feeling well dizzy, headache and generally not feeling well. Went to a regular doctor and had some blood work and evaluation done a week ago. Does not know the results. Continues to not feel well. Thinks she she may have diabetes. Denies any fever, chills or sweats at this time. No neck stiffness. TRAVEL OUTSIDE OF THE [place] IN LAST 30 DAYS: No - HPI Onset: Last week Onset/Duration: Gradual - Related Data Allergies/Adverse Reactions: No Known Allergies Allergy (Verified 08/03/17 22:05) Past Medical History - General Information source: Patient - Social History Smoking Status: Never Smoker Chew tobacco use (# tins/day): No Frequency of alcohol use: None Drug Abuse: None Lives with: Family Family History: Reviewed & Not Pertinent Patient has suicidal ideation: No Patient has homicidal ideation: No Pulmonary Medical History: Reports: Hx Asthma Renal/ Medical History: Reports: Hx Pelvic Inflammatory Disease. Denies: Hx Peritoneal Dialysis Psychiatric Medical History: Reports: Hx Depression Past Surgical History: Reports: Hx Section - 2 - Immunizations Hx Diphtheria, Pertussis, Tetanus Vaccination: Yes Review of Systems - Review of Systems Constitutional: Malaise. denies: Fever, Weakness EENT: denies: Ear pain, Throat pain, Throat swelling, Mouth swelling Cardiovascular: denies: Chest pain, Palpitations, Heart racing Respiratory: denies: Cough, Hurts to breathe, Short of breath, Wheezing Gastrointestinal: Nausea, Vomiting. denies: Abdominal pain, Diarrhea Genitourinary: denies: Burning, Dysuria, Discharge, Flank pain Female Genitourinary: denies: , Vaginal discharge, Vaginal bleeding, Vaginal odor Musculoskeletal: denies: Back pain, Joint pain, Muscle pain Skin: denies: Dryness, Lesions, Lumps, Rash Hematologic/Lymphatic: denies: Anemia, Blood clots, Easy bleeding, Easy bruising Neurological/Psychological: Headaches. denies: Dementia, Weakness, Numbness Physical Exam - Vital signs Vitals: Temp Pulse Resp BP Pulse Ox 98.3 F 97 20 125/78 100 01/12/18 20:04 01/12/18 20:04 01/12/18 20:04 01/12/18 20:04 01/12/18 20:04 Interpretation: Normal - General General appearance: Appears well, Alert - HEENT Head: Normocephalic, Atraumatic Eyes: Normal Pupils: PERRL - Respiratory Respiratory status: No respiratory distress Chest status: Nontender Breath sounds: Normal Chest palpation: Normal - Cardiovascular Rhythm: Regular Heart sounds: Normal auscultation Murmur: No - Abdominal Inspection: Normal Distension: No distension Bowel sounds: Normal Tenderness: Nontender Organomegaly: No organomegaly - Back Back: Normal, Nontender - Extremities General upper extremity: Normal inspection, Nontender, Normal color, Normal ROM , Normal temperature General lower extremity: Normal inspection, Nontender, Normal color, Normal ROM , Normal temperature, Normal weight bearing. No: Jasmin's sign - Neurological Neuro grossly intact: Yes Cognition: Normal Orientation: AAOx4 [place] Coma Scale Eye Opening: Spontaneous Brian Coma Scale Verbal: Oriented [place] Coma Scale Motor: Obeys Commands [place] Coma Scale Total: 15 Speech: Normal Motor strength normal: LUE, RUE, LLE, RLE Sensory: Normal - Psychological Associated symptoms: Normal affect, Normal mood - Skin Skin Temperature: Warm Skin Moisture: Dry Skin Color: Normal Course - Re-evaluation Re-evalutation: 01/12/18 22:46 Well-appearing female in no acute distress. Normal vital signs. Slightly elevated WBC count. Questionable UTI. At this time I think we should probably treat that and see if she gets better. I have given her strict instructions that she should return if anything gets worse. And will follow up with her regular doctor as well. 01/12/18 22:51 Could possibly have a UTI. Beginning treatment at this time. Otherwise rest of her labs look pretty unremarkable. Patient will need close follow-up. Will DC at this time. Patient is comfortable with this plan. - Vital Signs Vital signs: Temp Pulse Resp BP Pulse Ox 98.3 F 97 20 125/78 100 01/12/18 20:04 01/12/18 20:04 01/12/18 20:04 01/12/18 20:04 01/12/18 20:04 - Laboratory Result Diagrams: 01/12/18 21:17 01/12/18 21:17 Laboratory results interpreted by me: 01/12/18 01/12/18 21:17 21:17 WBC 11.1 H MCV 78 L MCH 25.8 L RDW 16.2 H Absolute Neutrophils 8.3 H Ur Leukocyte Esterase SMALL H Discharge - Discharge Clinical Impression: Urinary tract infection Qualifiers: Urinary tract infection type: site unspecified Hematuria presence: without hematuria Qualified Code(s): N39.0 - Urinary tract infection, site not specified Condition: Good Disposition: HOME, SELF-CARE Instructions: Urinary Tract Infection ([facility]), Ciprofloxacin ([facility]) Additional Instructions: We think that you may have a bladder infection. We are beginning treatment at this time. There is always the possibility that there could be something else. Please follow-up with your regular doctor soon as possible for repeat evaluation. If symptoms are getting worse over the next 12-24 hours then please return to the emergency department for repeat evaluation. Prescriptions: Ciprofloxacin HCl [Cipro 500 mg Tablet] 500 mg PO BID 5 Days #10 tablet Referrals: CLARE LOWERY MD [Primary Care Provider] - Follow up as needed
[2018-01-12] MEDS ORDERED: CIPROFLOXACIN HCL 500 MG TABLET PO ONE (22:48)
[2018-01-12 23:03] VITALS: BP 104/56
== END 2018-01-12 23:30 | disposition home or self-care (01) ==
LOC: ER 19:45
DX: N39.0 Urinary tract infection, site not specified (principal); R11.2 Nausea with vomiting, unspecified; R42 Dizziness and giddiness; R51 Headache
CPT/HCPCS: 99283; 36415; 87086; 83690; 84443; 85025; 81025; 80053; 81001; J3490

== ENCOUNTER 2019-01-10 13:14 | Emergency (ER) | payer MEDICAID ==
[2019-01-10 14:04] LABS: ABSOLUTE EOSINOPHILS # (AUTO) 0.1 10^3/uL (0.0-0.6); ABSOLUTE LYMPHOCYTES (AUTO) 1.9 10^3/uL (0.5-4.7); ABSOLUTE MONOCYTES (AUTO) 0.6 10^3/uL (0.1-1.4); ABSOLUTE NEUT (AUTO) 4.6 10^3/uL (1.7-8.2); BASOPHILS % (AUTO) 0.5 % (0-2); HEMATOCRIT 38.2 % (36.0-47.0); HEMOGLOBIN 12.9 g/dL (12.0-15.5); LYMPHOCYTES % (AUTO) 26.5 % (13-45); MEAN CORPUSCULAR HEMOGLOBIN 26.8 pg (27.0-33.4); MEAN CORPUSCULAR HGB CONC 33.8 g/dL (32.0-36.0); MEAN CORPUSCULAR VOLUME 79 fl (80-97); PLATELET COUNT 317 10^3/uL (150-450); RED BLOOD COUNT 4.83 10^6/uL (3.72-5.28); TOTAL CELLS COUNTED % (AUTO) 100 %; WHITE BLOOD COUNT 7.3 10^3/uL (4.0-10.5)
--- NOTE | 2019-01-10 14:09 | ER Document Report ---
ED Medical Screen (RME) - General Chief Complaint: Vag Bleeding, +preg <12wks Stated Complaint: VAGINAL BLEEDING Time Seen by Provider: 01/10/19 13:31 Primary Care Provider: CLARE LOWERY MD [Primary Care Provider] - Follow up as needed Mode of Arrival: Ambulatory Information source: Patient Notes: Patient is a 28-year-old female who presents the emergency department with complaints of vaginal bleeding. Patient reports bleeding started this morning. Patient states she is approximately 7 weeks . Patient is a . Patient does report that she passed a large clot earlier. Exam: Abdomen soft, mild tenderness to lower abdomen with palpation. Patient tearful. TRAVEL OUTSIDE OF THE [place] IN LAST 30 DAYS: No - Related Data Allergies/Adverse Reactions: No Known Allergies Allergy (Verified 08/03/17 22:05) Past Medical History Pulmonary Medical History: Reports: Hx Asthma Renal/ Medical History: Reports: Hx Pelvic Inflammatory Disease. Denies: Hx Peritoneal Dialysis Psychiatric Medical History: Reports: Hx Depression Past Surgical History: Reports: Hx Section - 2 - Immunizations Hx Diphtheria, Pertussis, Tetanus Vaccination: Yes Physical Exam - Vital signs Vitals: Temp Pulse Resp BP Pulse Ox 98.8 F 101 H 16 135/66 H 97 01/10/19 13:21 01/10/19 13:21 01/10/19 13:21 01/10/19 13:21 01/10/19 13:21 Course - Vital Signs Vital signs: Temp Pulse Resp BP Pulse Ox 98.8 F 101 H 16 135/66 H 97 01/10/19 13:21 01/10/19 13:21 01/10/19 13:21 01/10/19 13:21 01/10/19 13:21 - Laboratory Result Diagrams: 01/10/19 13:50 Laboratory results interpreted by me: 01/10/19 13:50 MCV 79 L MCH 26.8 L RDW 15.0 H Doctor's Discharge - Discharge Referrals: CLARE LOWERY MD [Primary Care Provider] - Follow up as needed
--- NOTE | 2019-01-10 15:28 | RADIOLOGY REPORT (SQ) ---
EXAM DESCRIPTION: U/S OB TRANSVAGINAL W/O DOP COMPLETED DATE/TIME: 01/10/2019 3:07 pm REASON FOR STUDY: 7 weeks , vag bleed COMPARISON: None. TECHNIQUE: Endovaginal static and realtime grayscale images acquired of the pelvis. Additional selec moisés spectral and color Doppler images recorded. All images stored on PACs. CLINICAL AGE: Last menses 11/21/2018 bHCG: Quantitative HCG today 551 LIMITATIONS: None. FINDINGS: UTERUS: No masses. No anomalies. Uterus is 11 x 6.5 x 5 cm in size GESTATIONAL SAC: A tiny gestational sac is present in the fundal endometrium with decidual reaction. Yolk sac is not identified. Gestational sac measures about 3 mm in diameter, suggesting EGA of 5 we eks YOLK SAC: Not yet identified POLE: Not yet identified RIGHT ADNEXA: Normal ovary with normal vascular flow. Right ovary 2.6 x 2.3 x 2.1 cm in size. No adnexal free fluid. No adnexal masses. LEFT ADNEXA: Ovary not seen due to adnexal bowel gas. No adnexal free fluid. No adnexal masses. FREE FLUID: None. OTHER: No other significant finding. IMPRESSION: POSSIBLE EARLY INTRAUTERINE . BHCG LEVEL APPROPRIATE FOR ENDOMETRIAL FINDINGS. CONSIDER F/U BHCG AND/OR ULTRASOUND FOR VERIFICATION AND TO EXCLUDE ECTOPIC . Results called to Nguyen Cloud in the emergency room 1520 hours 01/10/2019. Trimester of : First - 0 to 13 weeks. TECHNICAL DOCUMENTATION: JOB ID: [id number] [employer]- All Rights Reserved Reading location - IP/workstation name: [email or web address]
--- NOTE | 2019-01-10 16:47 | ER Document Report ---
ED GI/ - General Chief Complaint: Vag Bleeding, +preg <12wks Stated Complaint: VAGINAL BLEEDING Time Seen by Provider: 01/10/19 13:31 Primary Care Provider: CLARE LOWERY MD [NO LOCAL MD] - Follow up as needed Mode of Arrival: Ambulatory Information source: Patient Notes: Patient is a 28-year-old female comes in stating that she is approximately 7 weeks of gestation stated she started bleeding this morning and passed a few clots. Patient states that she is 5 para 3 she had a miscarriage back in May of this past year and had a similar presentation then with her other pregnancies she also states that she has had some bleeding each time but never this bad. She denies having any abdominal pain or cramping. She denies any nausea vomiting or diarrhea. She is somewhat teary on physical examination. TRAVEL OUTSIDE OF THE [place] IN LAST 30 DAYS: No - HPI Patient complains to provider of: Onset: This morning Timing/Duration: Sudden Quality of pain: No pain Severity at maximum: Moderate Severity in ED: Mild Pain Level: 1 Context: Vaginal bleeding (Compared to normal period): Passing clots Menstrual period history: Abnormal LMP: 6 weeks : 5 Para: 3 Abortions: 1 ABO type: A Rh factor: Rh- OB ultrasound done: Yes vitamins taken: Yes Sexual history: Active Associated symptoms: None Exacerbated by: Denies Relieved by: Denies Similar symptoms previously: Yes Recently seen / treated by doctor: No - Related Data Allergies/Adverse Reactions: No Known Allergies Allergy (Verified 08/03/17 22:05) Past Medical History - General Information source: Patient - Social History Smoking Status: Never Smoker Cigarette use (# per day): No Chew tobacco use (# tins/day): No Smoking Education Provided: No Frequency of alcohol use: None Drug Abuse: None Lives with: Family Family History: Reviewed & Not Pertinent Patient has suicidal ideation: No Patient has homicidal ideation: No Pulmonary Medical History: Reports: Hx Asthma Renal/ Medical History: Reports: Hx Pelvic Inflammatory Disease. Denies: Hx Peritoneal Dialysis Psychiatric Medical History: Reports: Hx Depression Past Surgical History: Reports: Hx Section - 2 - Immunizations Hx Diphtheria, Pertussis, Tetanus Vaccination: Yes Review of Systems - Review of Systems Constitutional: No symptoms reported EENT: No symptoms reported Cardiovascular: No symptoms reported Respiratory: No symptoms reported Gastrointestinal: No symptoms reported Genitourinary: No symptoms reported Female Genitourinary: See HPI, Vaginal bleeding Musculoskeletal: No symptoms reported Skin: No symptoms reported Hematologic/Lymphatic: No symptoms reported Neurological/Psychological: No symptoms reported -: Yes All other systems reviewed and negative Physical Exam - Vital signs Vitals: Temp Pulse Resp BP Pulse Ox 98.8 F 101 H 16 135/66 H 97 01/10/19 13:21 01/10/19 13:21 01/10/19 13:21 01/10/19 13:21 01/10/19 13:21 Interpretation: Hypertensive, Tachycardic - Notes Notes: PHYSICAL EXAMINATION: GENERAL: Well-appearing, well-nourished and in no acute distress. The patient is well-appearing and well-nourished she is also very tearful on physical exam. HEAD: Atraumatic, normocephalic. EYES: Pupils equal round and reactive to light, extraocular movements intact, conjunctiva are normal. ENT: Nares patent, oropharynx clear without exudates. Moist mucous membranes. NECK: Normal range of motion, supple without lymphadenopathy LUNGS: Breath sounds clear to auscultation bilaterally and equal. No wheezes rales or rhonchi. HEART: Regular rate and rhythm without murmurs ABDOMEN: Soft, nontender, nondistended abdomen. No guarding, no rebound. No masses appreciated. Female : deferred/patient requested not to have pelvic exam since the ultrasound came back and everything looked relatively good with a IUP. Musculoskeletal: Normal range of motion, no pitting or edema. No cyanosis. NEUROLOGICAL: Cranial nerves grossly intact. Normal speech, normal gait. Normal sensory, motor exams PSYCH: Normal mood, normal affect. SKIN: Warm, Dry, normal turgor, no rashes or lesions noted. Course - Re-evaluation Re-evalutation: 01/11/19 07:48 I had a long discussion with patient about pelvic rest and about getting connected with [facility]. She supposedly has someone in mind that she wants to see so she will attempt to call them to tomorrow. She is been informed to return here if she has increasing bleeding or abdominal pain. - Vital Signs Vital signs: Temp Pulse Resp BP Pulse Ox 98.2 F 91 18 138/93 H 99 01/10/19 17:36 01/10/19 17:36 01/10/19 17:36 01/10/19 17:36 01/10/19 17:36 - Laboratory Result Diagrams: 01/10/19 13:50 Laboratory results interpreted by me: 01/10/19 01/10/19 13:50 13:50 MCV 79 L MCH 26.8 L RDW 15.0 H Beta HCG, Quant 551.37 H Discharge - Discharge Clinical Impression: Dysfunctional uterine bleeding with previous hemorrhage Qualifiers: Trimester: first trimester Qualified Code(s): O09.291 - Supervision of with other poor reproductive or obstetric history, first trimester Condition: Fair Disposition: HOME, SELF-CARE Instructions: Bleeding During Early ([facility]) Additional Instructions: As we discussed is highly important that you rest your pelvis. No sexual activity no heavy lifting or pulling and kind of laid back and relax over the weekend. As we also discussed the need to have another quantitative done which is a blood draw done to give you a prescription for this and you can come in on Sunday morning or vault manager have the blood drawn and I will call you back on Sunday after I check the results. As we also discussed if anything should happen between now and then if you start having any kind of pain discomfort fever or increased amount of bleeding return before then. My name is Grover Daigle and I am a physician assistant teaching professor and you can contact phone #[phone]. This is the charge nurse who can get me and let me talk to you. Forms: Elevated Blood Pressure, Follow-Up Laboratory Testing Referrals: CLARE LOWERY MD [NO LOCAL MD] - Follow up as needed
[2019-01-10 17:41] VITALS: BP 138/93
== END 2019-01-10 17:35 | disposition home or self-care (01) ==
LOC: ER 13:14
DX: O20.8 Other hemorrhage in early pregnancy (principal); N93.8 Other specified abnormal uterine and vaginal bleeding; O09.291 Supervision of pregnancy with other poor reproductive or obstetric history, first trimester; O99.511 Diseases of the respiratory system complicating pregnancy, first trimester; J45.909 Unspecified asthma, uncomplicated; Z3A.01 Less than 8 weeks gestation of pregnancy
CPT/HCPCS: 99284; 86900; 86901; 36415; 86850; 84702; 85025; 76817; J2790

== ENCOUNTER → 2019-01-12 | Outpatient (CLI) | payer MEDICAID | LOC: LAB 09:31 | PROVIDERS: ATTEND Physician Assistant | DX: O46.90 Antepartum hemorrhage, unspecified, unspecified trimester (principal) | CPT/HCPCS: 36415; 84702 ==

== ENCOUNTER 2019-01-15 06:11 | Emergency (ER) | payer MEDICAID ==
--- NOTE | 2019-01-15 08:50 | ER Document Report ---
ED General - General Chief Complaint: OB Problem (<20wks) Stated Complaint: VAGINAL BLEEDING Time Seen by Provider: 01/15/19 08:09 Notes: 28-year-old female comes in approximately 7 weeks of gestation stated she started bleeding on 01/10 and passed a few clots. Patient states that she is 5 para 3 she had a miscarriage back in May of this past year and had a similar presentation then with her other pregnancies she also states that she has had some bleeding each time but never this bad. She denies having any abdominal pain or cramping. She denies any nausea vomiting or diarrhea. She was told that she needed to follow-up this morning for repeat serum quantitative hCG and ultrasound. She states that the bleeding is slightly worse but there have been no other changes. TRAVEL OUTSIDE OF THE [place] IN LAST 30 DAYS: No - Related Data Allergies/Adverse Reactions: No Known Allergies Allergy (Verified 08/03/17 22:05) Past Medical History - General Last Menstrual Period: 11/21/18 - Social History Smoking Status: Never Smoker Family History: Reviewed & Not Pertinent Patient has suicidal ideation: No Patient has homicidal ideation: No Pulmonary Medical History: Reports: Hx Asthma Renal/ Medical History: Reports: Hx Pelvic Inflammatory Disease. Denies: Hx Peritoneal Dialysis Psychiatric Medical History: Reports: Hx Depression Past Surgical History: Reports: Hx Section - 2 - Immunizations Hx Diphtheria, Pertussis, Tetanus Vaccination: Yes Review of Systems - Review of Systems Constitutional: No symptoms reported EENT: No symptoms reported Cardiovascular: See HPI Respiratory: See HPI Gastrointestinal: See HPI Genitourinary: No symptoms reported Female Genitourinary: See HPI Musculoskeletal: No symptoms reported Skin: No symptoms reported Hematologic/Lymphatic: No symptoms reported Neurological/Psychological: No symptoms reported Physical Exam - Vital signs Vitals: Temp Pulse Resp BP Pulse Ox 98.4 F 92 20 108/48 L 98 01/15/19 06:21 01/15/19 06:21 01/15/19 06:21 01/15/19 06:21 01/15/19 06:21 - Notes Notes: PHYSICAL EXAMINATION: Reviewed vital signs and charting by RN GENERAL: Alert, interacts well. No acute distress. HEAD: Normocephalic, atraumatic. EYES: Pupils equal and round. Extraocular movements intact. ENT: Oral mucosa moist, tongue midline. NECK: Full range of motion. Supple. Trachea midline. LUNGS: Clear to auscultation bilaterally, no wheezes, rales, or rhonchi. No respiratory distress. HEART: Regular rate and rhythm. No murmur ABDOMEN: soft, non-tender. Non-distended. Bowel sounds present. no McBurney's point tenderness, no Calderón sign. EXTREMITIES: Moves all 4 extremities spontaneously. No edema, No cyanosis. Normal distal neurovascular exam BACK: No CVAT NEUROLOGIC: Oriented and appropriate. Normal speech. PSYCH: Normal affect, normal mood. SKIN: Warm, dry, normal turgor. No rashes or lesions noted. Course - Re-evaluation Re-evalutation: 01/15/19 10:49 Patient presents with vaginal bleeding. States it is slightly worse than her visit 2 days ago. Transvaginal ultrasound showed a gestational sac with no pole, gestational age 5 weeks 3 days. Beta hCG 471, which has decreased from last check 48 hours ago. Concern for a threatened . Will refer her to the on-call OB Dr. Aldana. Patient not bleeding heavily and is not anemic. I have given her strict return precautions. 01/15/19 11:35 - Vital Signs Vital signs: Temp Pulse Resp BP Pulse Ox 98.4 F 92 20 108/48 L 98 01/15/19 06:21 01/15/19 06:21 01/15/19 06:21 01/15/19 06:21 01/15/19 06:21 - Laboratory Result Diagrams: 01/15/19 09:08 Laboratory results interpreted by me: 01/15/19 01/15/19 01/15/19 08:23 09:08 09:08 MCV 79 L RDW 15.5 H Beta HCG, Quant 471.90 H Urine Protein 30 H Urine Ketones TRACE H Urine Blood LARGE H Urine Urobilinogen 2.0 H Ur Leukocyte Esterase TRACE H Discharge - Discharge Clinical Impression: Vaginal bleeding affecting early Condition: Good Disposition: HOME, SELF-CARE Additional Instructions: Your ultrasound today shows a gestational sac with no pole. Also, your serum hCG quantitative level has gone down slightly. Today the level was 471 down slightly from 520. This is concerning that you may have a potential threatened miscarriage. I am giving you the information for the on-call [facility] Dr. Aldana. Please call them today to set up follow-up. Please return if you develop severe abdominal pain, bleeding that goes through more than 2 pads for more than 2 hours, pass out, or have any other symptoms that are concerning to you. Please follow-up closely with your OBGYN regarding todays visit. Referrals: JACKY ALDANA MD [ACTIVE STAFF] - Follow up tomorrow
[2019-01-15 08:52] LABS: AMORPHOUS SEDIMENT,URINE TRACE /HPF; APPEARANCE,URINE CLOUDY; BILIRUBIN,URINE NEGATIVE (NEGATIVE); COLOR,URINE AMBER; GLUCOSE, URINE NEGATIVE (NEGATIVE); KETONES,URINE TRACE mg/dL (NEGATIVE); LEUKOCYTE ESTERASE,URINE TRACE (NEGATIVE); NITRITE,URINE NEGATIVE (NEGATIVE); PROTEIN,URINE 30 mg/dL (NEGATIVE); URINE SPECIFIC GRAVITY 1.029
[2019-01-15 09:37] LABS: ABSOLUTE EOSINOPHILS # (AUTO) 0.1 10^3/uL (0.0-0.6); ABSOLUTE LYMPHOCYTES (AUTO) 1.8 10^3/uL (0.5-4.7); ABSOLUTE MONOCYTES (AUTO) 0.6 10^3/uL (0.1-1.4); ABSOLUTE NEUT (AUTO) 4.8 10^3/uL (1.7-8.2); BASOPHILS % (AUTO) 0.4 % (0-2); EOSINOPHILS % (AUTO) 0.9 % (0-6); HEMATOCRIT 36.6 % (36.0-47.0); HEMOGLOBIN 12.6 g/dL (12.0-15.5); LYMPHOCYTES % (AUTO) 24.7 % (13-45); MEAN CORPUSCULAR HEMOGLOBIN 27.1 pg (27.0-33.4); MEAN CORPUSCULAR HGB CONC 34.3 g/dL (32.0-36.0); MEAN CORPUSCULAR VOLUME 79 fl (80-97); MONOCYTES % (AUTO) 7.8 % (3-13); PLATELET COUNT 308 10^3/uL (150-450); RED BLOOD COUNT 4.63 10^6/uL (3.72-5.28); RED CELL DISTRIBUTION WIDTH 15.5 % (11.5-14.0); SEGMENTED NEUTROPHILS % (AUTO) 66.2 % (42-78); TOTAL CELLS COUNTED % (AUTO) 100 %; WHITE BLOOD COUNT 7.2 10^3/uL (4.0-10.5)
--- NOTE | 2019-01-15 10:36 | RADIOLOGY REPORT (SQ) ---
EXAM DESCRIPTION: U/S OB TRANSVAG W/DOPPLER COMPLETED DATE/TIME: 01/15/2019 9:50 am REASON FOR STUDY: vaginal bleeding COMPARISON: 09/20/2016, 01/10/2019 TECHNIQUE: Transvaginal static and realtime grayscale images acquired of the pelvis. Additional jahaira cted spectral and color Doppler images recorded. All images stored on PACs. CLINICAL AGE: LMP 11/21/2018 bHCG: Pending. LIMITATIONS: None. FINDINGS: UTERUS: No masses. No anomalies. Uterus measures 10.1 x 5.9 x 5.8 cm GESTATIONAL SAC: There is a anechoic structure within the endometrial canal measuring 0.69 cm. The s ize corresponds to estimated gestational age of 5 weeks and 3 days. YOLK SAC: No. POLE: None present. RIGHT ADNEXA: Unremarkable re- measuring 3.1 x 1.4 x 2.1 cm. Color Doppler demonstrates evidence of flow. No adnexal free fluid. No adnexal masses. LEFT ADNEXA: Ovary not identified due to poor acoustical window. No adnexal free fluid. No adnexal masses. FREE FLUID: None. OTHER: No other significant finding. IMPRESSION: Anechoic structure within the uterine canal likely representing a gestational sac. Sac size corresponds to estimated gestational age of 5 weeks and 3 days. No pole is visualize whic h is not unexpected for this sac size. Recommend follow-up beta HCG and/or ultrasound. Trimester of : First - 0 to 13 weeks. TECHNICAL DOCUMENTATION: JOB ID: [id number] [employer]- All Rights Reserved Reading location - IP/workstation name: [email or web address]
[2019-01-15 12:03] VITALS: BP 144/87
== END 2019-01-15 12:04 | disposition home or self-care (01) ==
LOC: ER 06:11
DX: O20.9 Hemorrhage in early pregnancy, unspecified (principal); O99.511 Diseases of the respiratory system complicating pregnancy, first trimester; J45.909 Unspecified asthma, uncomplicated; Z3A.01 Less than 8 weeks gestation of pregnancy; Z87.59 Personal history of other complications of pregnancy, childbirth and the puerperium
CPT/HCPCS: 36415; 76817; 81001; 84702; 85025; 93976; 99284

== ENCOUNTER 2019-04-01 16:49 | Emergency (ER) | payer MEDICAID ==
[2019-04-01] MEDS ORDERED: NORMAL SALINE 1000 ML 1,000 ML IV ONE (17:07)
[2019-04-01] MEDS ORDERED: IBUPROFEN 400 MG TABLET PO ONE (17:08)
[2019-04-01] MEDS ORDERED: ONDANSETRON HCL INJ/PF 4 MG/2 ML SDV IV ONE ×2 (17:09→18:22)
--- NOTE | 2019-04-01 17:09 | ER Document Report ---
ED Medical Screen (RME) - General Chief Complaint: Abdominal Pain Stated Complaint: FEVER Time Seen by Provider: 04/01/19 17:05 Mode of Arrival: Ambulatory Information source: Patient Notes: Patient presents complaining of fever that started yesterday. Patient developed right lower quadrant tenderness today. Patient does complain of some nausea. Patient reports taking Tylenol 1000 mg at 4 PM and taking Motrin 400 mg at 2 PM today. I have greeted and performed a rapid initial assessment of this patient. A comprehensive ED assessment and evaluation of the patient, analysis of test res ults and completion of the medical decision making process will be conducted by additional ED providers. TRAVEL OUTSIDE OF THE [place] IN LAST 30 DAYS: No - Related Data Allergies/Adverse Reactions: No Known Allergies Allergy (Verified 04/01/19 16:49) Past Medical History Pulmonary Medical History: Reports: Hx Asthma Renal/ Medical History: Reports: Hx Pelvic Inflammatory Disease. Denies: Hx Peritoneal Dialysis Psychiatric Medical History: Reports: Hx Depression Past Surgical History: Reports: Hx Section - 2 - Immunizations Hx Diphtheria, Pertussis, Tetanus Vaccination: Yes Physical Exam - Vital signs Vitals: Temp Pulse Resp BP Pulse Ox 102.5 F H 138 H 28 H 119/72 95 04/01/19 16:56 04/01/19 16:56 04/01/19 16:56 04/01/19 16:56 04/01/19 16:56 - Abdominal Tenderness: Tender - Right lower pelvic tenderness Course - Vital Signs Vital signs: Temp Pulse Resp BP Pulse Ox 102.5 F H 138 H 28 H 119/72 95 04/01/19 16:56 04/01/19 16:56 04/01/19 16:56 04/01/19 16:56 04/01/19 16:56
[2019-04-01 17:49] LABS: APPEARANCE,URINE SLIGHTLY-CLOUDY; BILIRUBIN,URINE NEGATIVE (NEGATIVE); COLOR,URINE YELLOW; GLUCOSE, URINE NEGATIVE (NEGATIVE); KETONES,URINE NEGATIVE (NEGATIVE); LEUKOCYTE ESTERASE,URINE NEGATIVE (NEGATIVE); NITRITE,URINE NEGATIVE (NEGATIVE); PROTEIN,URINE NEGATIVE (NEGATIVE); URINE SPECIFIC GRAVITY 1.021
[2019-04-01 17:58] LABS: INTERNATIONAL RATION (INR) 1.11; PROTHROMBIN TIME 14.4 SEC (11.4-15.4)
[2019-04-01 18:02] LABS: ABSOLUTE LYMPHOCYTES (AUTO) 1.4 10^3/uL (0.5-4.7); ABSOLUTE MONOCYTES (AUTO) 0.7 10^3/uL (0.1-1.4); ABSOLUTE NEUT (AUTO) 10.3 10^3/uL (1.7-8.2); BASOPHILS % (AUTO) 0.4 % (0-2); EOSINOPHILS % (AUTO) 0.1 % (0-6); HEMATOCRIT 36.4 % (36.0-47.0); HEMOGLOBIN 12.2 g/dL (12.0-15.5); LYMPHOCYTES % (AUTO) 11.6 % (13-45); MEAN CORPUSCULAR HEMOGLOBIN 26.1 pg (27.0-33.4); MEAN CORPUSCULAR HGB CONC 33.6 g/dL (32.0-36.0); MEAN CORPUSCULAR VOLUME 78 fl (80-97); MONOCYTES % (AUTO) 5.8 % (3-13); PLATELET COUNT 308 10^3/uL (150-450); RED BLOOD COUNT 4.68 10^6/uL (3.72-5.28); RED CELL DISTRIBUTION WIDTH 15.4 % (11.5-14.0); SEGMENTED NEUTROPHILS % (AUTO) 82.1 % (42-78); TOTAL CELLS COUNTED % (AUTO) 100 %; WHITE BLOOD COUNT 12.5 10^3/uL (4.0-10.5)
--- NOTE | 2019-04-01 18:12 | ER Document Report ---
ED General - General Chief Complaint: Abdominal Pain Stated Complaint: FEVER Time Seen by Provider: 04/01/19 17:05 Mode of Arrival: Ambulatory Notes: Patient is a 29-year-old female that presents to the emergency department for chief complaint of right lower quadrant abdominal pain and fever. Patient states she started having fever yesterday, tried taking Tylenol and Motrin, when she woke up this morning she had significant right lower quadrant pain with associated nausea, which she currently rates as an 8 out of 10 pain. She denies any urinary symptoms such as dysuria hematuria, she states she complains of some sore throat with this as well. She describes her current pain as a constant aching pain, worse with any palpation to her abdomen. She denies any associated constipation or diarrhea. She is never had pain like this before. She states she has endometriosis, but this feels different than that. She also reports recent late term miscarriage, 1 month ago. Past Medical History: Endometriosis Past Surgical History: Laparoscopy x2, Social History: Denies smoking cigarettes, but admits to occasional alcohol use, denies illicit drug use. Family History: Reviewed and noncontributory for presenting illness Allergies: Reviewed, see documented allergy list. REVIEW OF SYSTEMS: Other than noted above, the 12 point review of systems was reviewed with the patient and were negative, all pertinent findings are included in the HPI. PHYSICAL EXAMINATION: Vital signs reviewed, nursing noted reviewed. GENERAL: Obese female, appears uncomfortable on exam HEAD: Atraumatic, normocephalic. EYES: Eyes appear normal, extraocular movements intact, sclera anicteric, conjunctiva are normal. ENT: nares patent, oropharynx clear without exudates. Moist mucous membranes. NECK: Normal range of motion, supple without lymphadenopathy LUNGS: Breath sounds clear to auscultation bilaterally and equal. No wheezes rales or rhonchi. HEART: Heart rate tachycardic, regular rhythm. ABDOMEN: Soft, significant right lower quadrant tenderness to palpation, with positive Rovsing's maneuver as well, tenderness over McBurney's point., normoactive bowel sounds. Positive for guarding. No distention. Pelvic Exam: With a wood window and door craftsman present the exam was explained to the patient and patient agreed to proceed with exam. On exam, no external lesions or abnormalities noted. Internal speculum exam demonstrated normal appearing cervix without purulent discharge. Swabs obtained. There was right adnexal tenderness to palpation without palpable mass, left was unremarkable, noted was scant blood in the vaginal vault, no active bleeding. EXTREMITIES: Nontender, good range of motion, no pitting or edema. NEUROLOGICAL: No focal neurological deficits. Moves all extremities spontaneously Motor and sensory grossly intact on exam. PSYCH: Patient appears uncomfortable, but answering questions appropriately. SKIN: Warm, Dry, normal turgor, no rashes or lesions noted on exposed skin TRAVEL OUTSIDE OF THE [place] IN LAST 30 DAYS: No - Related Data Allergies/Adverse Reactions: No Known Allergies Allergy (Verified 04/01/19 16:49) Past Medical History - General Information source: Patient - Social History Smoking Status: Current Every Day Smoker Chew tobacco use (# tins/day): No Drug Abuse: None Family History: Reviewed & Not Pertinent Patient has suicidal ideation: No Patient has homicidal ideation: No Pulmonary Medical History: Reports: Hx Asthma Renal/ Medical History: Reports: Hx Pelvic Inflammatory Disease. Denies: Hx Peritoneal Dialysis Psychiatric Medical History: Reports: Hx Depression Past Surgical History: Reports: Hx Section - 2 - Immunizations Hx Diphtheria, Pertussis, Tetanus Vaccination: Yes Physical Exam - Vital signs Vitals: Temp Pulse Resp BP Pulse Ox 102.5 F H 138 H 28 H 119/72 95 04/01/19 16:56 04/01/19 16:56 04/01/19 16:56 04/01/19 16:56 04/01/19 16:56 Course - Re-evaluation Re-evalutation: Patient seen and examined vital signs reviewed. Laboratory data and/or imaging were ordered as appropriate for the patient's presenting symptoms and complaint, with consideration of any critical or life threatening conditions that may be associated with their obtained history and exam as noted above. Patient was treated with IV fluids, Toradol, morphine and Zofran Results were reviewed when available and demonstrated CT imaging was positive for looks like mesenteric adenitis, appendix was not visualized, I briefly discussed the case with our on-call surgeon, Dr. Pearson, who recommended looking into pelvic etiology as possible cause, pelvic exam was performed, and was unremarkable with the exception of some blood in the vaginal vault, cervix vanda eared normal, there was some right adnexal tenderness to palpation, no masses palpated, and transvaginal ultrasound was unremarkable and normal, no signs of torsion. The patient was re-evaluated and was improved, vital signs improved, heart rate did come down, afebrile, we will treat the patient for mesenteric adenitis, patient given a dose of Cipro and Flagyl, will discharge her home with the same antibiotics for a total of 10 days and to follow-up with her primary care. Evaluation was most consistent with mesenteric adenitis, right lower quadrant abdominal pain. Results were discussed with the patient at this point, after careful consideration I feel that that patient can be discharged from the emergency department, the patient was educated treatments and reasons to return to the emergency department based on their presumed diagnosis as noted above, they were advised to followup with a primary care physician in 2-3 days. Patient was agreeable to plan of care. *Note is created using voice recognition software and may contain spelling, syntax or grammatical errors. Laboratory 04/01/19 04/01/19 04/01/19 17:13 17:25 17:25 WBC 12.5 H RBC 4.68 Hgb 12.2 Hct 36.4 MCV 78 L MCH 26.1 L MCHC 33.6 RDW 15.4 H Plt Count 308 Seg Neutrophils % 82.1 H Lymphocytes % 11.6 L Monocytes % 5.8 Eosinophils % 0.1 Basophils % 0.4 Absolute Neutrophils 10.3 H Absolute Lymphocytes 1.4 Absolute Monocytes 0.7 Absolute Eosinophils 0.0 Absolute Basophils 0.0 PT 14.4 INR 1.11 VBG pH VBG pCO2 VBG HCO3 VBG Base Excess Sodium Potassium Chloride Carbon Dioxide Anion Gap BUN Creatinine Est GFR ( Amer) Est GFR (Non-Af Amer) Glucose POC Glucose Lactic Acid Calcium Total Bilirubin Direct Bilirubin Neonat Total Bilirubin Neonat Direct Bilirubin Neonat Indirect Bili AST ALT Alkaline Phosphatase Total Protein Albumin Serum HCG, Qual Urine Color YELLOW Urine Appearance SLIGHTLY-CLOUDY Urine pH 8.0 Ur Specific [place] 1.021 Urine Protein NEGATIVE Urine Glucose (UA) NEGATIVE Urine Ketones NEGATIVE Urine Blood LARGE H Urine Nitrite NEGATIVE Urine Bilirubin NEGATIVE Urine Urobilinogen 2.0 H Ur Leukocyte Esterase NEGATIVE Urine WBC (Auto) 3 Urine RBC (Auto) 1 Squamous Epi Cells Auto 11 Urine Mucus (Auto) RARE Urine Ascorbic Acid NEGATIVE Epi Cells (Wet Prep) Bacteria (Wet Prep) Trichomonas (Wet Prep) Vaginal WBC Vaginal RBC Vaginal Yeast 04/01/19 04/01/19 04/01/19 17:25 17:25 17:25 WBC RBC Hgb Hct MCV MCH MCHC RDW Plt Count Seg Neutrophils % Lymphocytes % Monocytes % Eosinophils % Basophils % Absolute Neutrophils Absolute Lymphocytes Absolute Monocytes Absolute Eosinophils Absolute Basophils PT INR VBG pH VBG pCO2 VBG HCO3 VBG Base Excess Sodium 137.1 Potassium 3.9 Chloride 100 Carbon Dioxide 24 Anion Gap 13 BUN 8 Creatinine 0.71 Est GFR ( Amer) > 60 Est GFR (Non-Af Amer) > 60 Glucose 103 POC Glucose Lactic Acid 1.4 Calcium 10.1 Total Bilirubin 0.9 Direct Bilirubin 0.3 Neonat Total Bilirubin Not Reportable Neonat Direct Bilirubin Not Reportable Neonat Indirect Bili Not Reportable AST 21 ALT 25 Alkaline Phosphatase 94 Total Protein 8.7 H Albumin 4.8 Serum HCG, Qual NEGATIVE Urine Color Urine Appearance Urine pH Ur Specific [place] Urine Protein Urine Glucose (UA) Urine Ketones Urine Blood Urine Nitrite Urine Bilirubin Urine Urobilinogen Ur Leukocyte Esterase Urine WBC (Auto) Urine RBC (Auto) Squamous Epi Cells Auto Urine Mucus (Auto) Urine Ascorbic Acid Epi Cells (Wet Prep) Bacteria (Wet Prep) Trichomonas (Wet Prep) Vaginal WBC Vaginal RBC Vaginal Yeast 04/01/19 04/01/19 04/01/19 17:42 19:00 20:10 WBC RBC Hgb Hct MCV MCH MCHC RDW Plt Count Seg Neutrophils % Lymphocytes % Monocytes % Eosinophils % Basophils % Absolute Neutrophils Absolute Lymphocytes Absolute Monocytes Absolute Eosinophils Absolute Basophils PT INR VBG pH Cancelled 7.40 VBG pCO2 Cancelled 39.7 VBG HCO3 Cancelled 24.2 VBG Base Excess Cancelled -0.5 Sodium Potassium Chloride Carbon Dioxide Anion Gap BUN Creatinine Est GFR ( Amer) Est GFR (Non-Af Amer) Glucose POC Glucose 106 Lactic Acid Calcium Total Bilirubin Direct Bilirubin Neonat Total Bilirubin Neonat Direct Bilirubin Neonat Indirect Bili AST ALT Alkaline Phosphatase Total Protein Albumin Serum HCG, Qual Urine Color Urine Appearance Urine pH Ur Specific [place] Urine Protein Urine Glucose (UA) Urine Ketones Urine Blood Urine Nitrite Urine Bilirubin Urine Urobilinogen Ur Leukocyte Esterase Urine WBC (Auto) Urine RBC (Auto) Squamous Epi Cells Auto Urine Mucus (Auto) Urine Ascorbic Acid Epi Cells (Wet Prep) Bacteria (Wet Prep) Trichomonas (Wet Prep) Vaginal WBC Vaginal RBC Vaginal Yeast 04/01/19 21:11 WBC RBC Hgb Hct MCV MCH MCHC RDW Plt Count Seg Neutrophils % Lymphocytes % Monocytes % Eosinophils % Basophils % Absolute Neutrophils Absolute Lymphocytes Absolute Monocytes Absolute Eosinophils Absolute Basophils PT INR VBG pH VBG pCO2 VBG HCO3 VBG Base Excess Sodium Potassium Chloride Carbon Dioxide Anion Gap BUN Creatinine Est GFR ( Amer) Est GFR (Non-Af Amer) Glucose POC Glucose Lactic Acid Calcium Total Bilirubin Direct Bilirubin Neonat Total Bilirubin Neonat Direct Bilirubin Neonat Indirect Bili AST ALT Alkaline Phosphatase Total Protein Albumin Serum HCG, Qual Urine Color Urine Appearance Urine pH Ur Specific [place] Urine Protein Urine Glucose (UA) Urine Ketones Urine Blood Urine Nitrite Urine Bilirubin Urine Urobilinogen Ur Leukocyte Esterase Urine WBC (Auto) Urine RBC (Auto) Squamous Epi Cells Auto Urine Mucus (Auto) Urine Ascorbic Acid Epi Cells (Wet Prep) 4+ EPITHELIALS SEEN Bacteria (Wet Prep) 4+ BACTERIA SEEN Trichomonas (Wet Prep) NO TRICHOMONAS SEEN Vaginal WBC RARE WBCS SEEN Vaginal RBC 4+ RBCS SEEN Vaginal Yeast NO YEAST SEEN Abdomen/Pelvis CT 04/01/19 18:22 IMPRESSION: Hepatic steatosis. There are some small lymph nodes in the right lower quadrant near the cecum. Correlate for mesenteric adenitis. The appendix is not identified. Transvaginal US 04/01/19 19:21 IMPRESSION: No acute abnormalities. - Vital Signs Vital signs: Temp Pulse Resp BP Pulse Ox 98.9 F 102 H 20 124/78 96 04/01/19 20:52 04/01/19 20:52 04/01/19 20:52 04/01/19 22:01 04/01/19 22:01 - Laboratory Result Diagrams: 04/01/19 17:25 04/01/19 17:25 Laboratory results interpreted by me: 04/01/19 04/01/19 04/01/19 17:13 17:25 17:25 WBC 12.5 H MCV 78 L MCH 26.1 L RDW 15.4 H Seg Neutrophils % 82.1 H Lymphocytes % 11.6 L Absolute Neutrophils 10.3 H Total Protein 8.7 H Urine Blood LARGE H Urine Urobilinogen 2.0 H - EKG Interpretation by Me Additional EKG results interpreted by me: EKG demonstrates sinus tachycardia with a ventricular rate of 125 bpm, normal axis, normal intervals, no evidence of acute ischemia in this EKG. Discharge - Discharge Clinical Impression: Mesenteric adenitis, Right lower quadrant abdominal pain Leukocytosis Qualifiers: Leukocytosis type: unspecified Qualified Code(s): D72.829 - Elevated white blood cell count, unspecified Condition: Stable Disposition: HOME, SELF-CARE Additional Instructions: Please take the complete course of antibiotics as prescribed, even if you are feeling better sooner, if your symptoms worsen over the next 2 days and are not improving, do not hesitate to return to the emergency department sooner. Prescriptions: Ciprofloxacin HCl [Cipro 500 mg Tablet] 500 mg PO BID #20 tablet Metronidazole [Flagyl 500 mg Tablet] 500 mg PO Q8H #30 tablet Naproxen 500 mg PO BID PRN #30 tablet PRN Reason: abdominal pain Referrals: [facility] [Provider Group] - Follow up in 3-5 days
[2019-04-01 18:20] LABS: ALANINE AMINOTRANSFERASE 25 U/L (9-52); ALBUMIN 4.8 g/dL (3.5-5.0); ALKALINE PHOSPHATASE 94 U/L (38-126); ANION GAP 13 (5-19); ASPARTATE AMINO TRANSFERASE 21 U/L (14-36); BILIRUBIN,DIRECT 0.3 mg/dL (0.0-0.4); BILIRUBIN,TOTAL 0.9 mg/dL (0.2-1.3); BLOOD UREA NITROGEN 8 mg/dL (7-20); CALCIUM 10.1 mg/dL (8.4-10.2); CARBON DIOXIDE 24 mmol/L (22-30); CHLORIDE 100 mmol/L (98-107); GLUCOSE 103 mg/dL (75-110); POTASSIUM 3.9 mmol/L (3.6-5.0); SODIUM 137.1 mmol/L (137-145); TOTAL PROTEIN 8.7 g/dL (6.3-8.2)
[2019-04-01] MEDS ORDERED: RINGERS SOLUTION,LACTATED 1,000 ML IV ONE (18:21)
[2019-04-01] MEDS ORDERED: MORPHINE SULFATE 10 MG/ML INJ IV ONE (18:22)
--- NOTE | 2019-04-01 19:14 | RADIOLOGY REPORT (SQ) ---
EXAM DESCRIPTION: CT ABD/PELVIS WITH IV ONLY COMPLETED DATE/TIME: 04/01/2019 6:54 pm REASON FOR STUDY: rlq abdominal pain fever COMPARISON: None. TECHNIQUE: CT scan of the abdomen and pelvis performed using helical scanning technique with dynamic intravenous contrast injection. No oral contrast. Images reviewed with lung, soft tissue, and bone windows. Reconstructed coronal and sagittal MPR images reviewed. Delayed images for evaluation of the urinary system also acquired. All images stored on PACS. All CT scanners at this facility use dose modulation, iterative reconstruction, and/or weight based d osing when appropriate to reduce radiation dose to as low as reasonably achievable (ALARA). [facility]: Dose Right [facility]: CareDose [facility]: Dose Right [facility]: Teradose 4D [facility]: Stumpwise CONTRAST TYPE AND DOSE: contrast/concentration: Isovue 350.00 mg/ml; Total Contrast Delivered: 100.0 ml; Total Saline Delivered: 72.0 ml RENAL FUNCTION: None required. The patient is less than 50 years old. RADIATION DOSE: CT Rad equipment meets quality standard of care and radiation dose reduction techniq ues were employed. CTDIvol: 21.1 - 29.1 mGy. DLP: 2667 mGy-cm.. LIMITATIONS: None. FINDINGS: LOWER CHEST: No significant findings. No nodules or infiltrates. LIVER: Mild hypo attenuation. No masses. SPLEEN: Normal size. No focal lesions. PANCREAS: No masses. No significant calcifications. No adjacent inflammation or peripancreatic fluid collections. Pancreatic duct not dilated. GALLBLADDER: No identified stones by CT criteria. No inflammatory changes to suggest cholecystitis. ADRENAL GLANDS: No significant masses or asymmetry. RIGHT KIDNEY AND URETER: No solid masses. No significant calcifications. No hydronephrosis or hyd roureter. LEFT KIDNEY AND URETER: No solid masses. No significant calcifications. No hydronephrosis or hydr oureter. AORTA AND VESSELS: No aneurysm. No dissection. Renal arteries, SMA, celiac without stenosis. RETROPERITONEUM: No retroperitoneal adenopathy, hemorrhage or masses. BOWEL AND PERITONEAL CAVITY: No masses. There are several small lymph nodes in the right lower quadr ant. APPENDIX: Not identified. PELVIS: No mass. No free fluid. Normal bladder. ABDOMINAL WALL: No masses. No hernias. BONES: No significant or acute findings. OTHER: No other significant finding. IMPRESSION: Hepatic steatosis. There are some small lymph nodes in the right lower quadrant near th e cecum. Correlate for mesenteric adenitis. The appendix is not identified. TECHNICAL DOCUMENTATION: JOB ID: [id number] Quality ID # [id number]: Final reports with documentation of one or more dose reduction techniques (e.g., Au tomated exposure control, adjustment of the mA and/or kV according to patient size, use of iterative reconstruction technique) 2010 [email or web address] All Rights Reserved Reading location - IP/workstation name: [email or web address]
[2019-04-01 20:38] LABS: VENOUS BLOOD BASE EXCESS -0.5 mmol/L; VENOUS BLOOD HCO3 24.2 mmol/L (20-32); VENOUS BLOOD PCO2 39.7 mmHg (35-63); VENOUS BLOOD PH 7.4 (7.30-7.42)
--- NOTE | 2019-04-01 21:00 | RADIOLOGY REPORT (SQ) ---
EXAM DESCRIPTION: US PELVIS TRANSVAGINAL COMPLETED DATE/TME: 04/01/2019 19:21 CLINICAL HISTORY: right pelvic pain, fever COMPARISON: CT performed the same day FINDINGS: Transvaginal images of the pelvis were submitted. The uterus is of homogeneous echotexture without focal mass. The uterus measures 9.6 x 5.1 x 5.8 cm. The cervix measured 2.7 cm in length. The endometrial complex measured 5.4 mm which is within normal limits.. There is no adnexal mass. The right ovary measured 2.1 x 1.9 x 3.1 cm. The left ovary measured 1.7 x 2 x 2.1 cm. There is no sonographic evidence of ovarian torsion. There is no free fluid in the pelvis. IMPRESSION: No acute abnormalities.
[2019-04-01] MEDS ORDERED: KETOROLAC TROMETHAMINE INJ/PF 30 MG/1 ML SDV IV ONE (21:21)
[2019-04-01] MEDS ORDERED: METRONIDAZOLE 500 MG/NS RTU 500 MG/100 ML RTUPB IV ONE (21:21)
[2019-04-01 21:26] LABS: BACTERIA (WET MOUNT) 4+ BACTERIA SEEN; EPITHELIALS (WET MOUNT) 4+ EPITHELIALS SEEN; RBCS (WET MOUNT) 4+ RBCS SEEN; T.VAGINALIS (WET MOUNT) NO TRICHOMONAS SEEN; WBCS (WET MOUNT) RARE WBCS SEEN; YEAST (WET MOUNT) NO YEAST SEEN
[2019-04-01] MEDS ORDERED: CIPROFLOXACIN 400 MG/D5W RTU 400 MG/200 ML RTUPB IV SCH (22:00)
[2019-04-01 22:53] LABS: CHLAM PCR NOT DETECTED (NOT DETECT)
[2019-04-01 23:01] VITALS: BP 122/67
--- NOTE | 2019-04-01 23:21 | EKG REPORT ---
SEVERITY:- OTHERWISE NORMAL ECG - SINUS TACHYCARDIA : Confirmed by: Get Santoro 01-Apr-2019 23:21:21
== END 2019-04-01 23:02 | disposition home or self-care (01) ==
LOC: ER 16:49
DX: I88.0 Nonspecific mesenteric lymphadenitis (principal); R10.31 Right lower quadrant pain; R50.9 Fever, unspecified; D72.829 Elevated white blood cell count, unspecified; F17.200 Nicotine dependence, unspecified, uncomplicated
CPT/HCPCS: 93005; 96376; 99284; 96361; 96375; 96365; 96368; 36415; 87040; 87086; 87210; 82962; 84703; 85025; 85610; 87088; 80053; 81001; 87491; 87591; 82803; 83605; 76830; 93976; 74177; 93010; J3490 ×2; J1885; J2270; J2405; J7030; J7120; J0744